=== PATIENT | female | born 1950 | race Caucasian/White ===

== ENCOUNTER 2018-05-13 23:07 | Emergency (ER) | payer MEDICARE, MEDICAID ==
[~2018-05-13] VITALS: Ht 160 cm; Wt 56.7 kg
--- NOTE | 2018-05-13 23:13 | NUR ---
Patient to ER bed 4 to gown for evaluation. Side rails up. Report given to SABINA GARCIA.
--- NOTE | 2018-05-13 23:15 | NUR ---
ER Dr. Navarrete at bedside examining patient.
--- NOTE | 2018-05-13 23:15 | NUR ---
Pt states she needs a refill for her inhaler. Will continue to monitor. No distress noted. AAOX4.
--- NOTE | 2018-05-13 23:21 | NUR ---
Patient given written and verbal discharge instructions and verbalizes understanding. ER MD discussed with patient the results and treatment provided. Patient in stable condition. ID arm band removed. Rx of Proventil given. Patient educated on pain management and to follow up with PMD. Pain Scale 0/10. Opportunity for questions provided and answered. Medication side effect fact sheet provided.
[2018-05-13 23:23] VITALS: BP_SYST 99
== END 2018-05-13 23:21 | disposition home or self-care (01) ==
LOC: SED 23:07
DX: J45.909 Unspecified asthma, uncomplicated (principal); F17.210 Nicotine dependence, cigarettes, uncomplicated; Z76.0 Encounter for issue of repeat prescription; Z86.19 Personal history of other infectious and parasitic diseases
CPT/HCPCS: 99283

== ENCOUNTER 2018-06-27 18:23 | Inpatient (IN) | payer MEDICARE, MEDICAID ==
[~2018-06-27] VITALS: Ht 157.5 cm; Wt 51.3 kg
--- NOTE | 2018-06-27 18:25 | NUR ---
ER at bedside examining patient.
--- NOTE | 2018-06-27 18:26 | NUR ---
Patient to ER bed 03 to gown for evaluation. Side rails up. Report given to SABINA Best
--- NOTE | 2018-06-27 18:30 | NUR ---
Patient is confused, unable to get history. Speech is garbled. Patient was found under a tree with open bottles of alcohol. No s/s of distress noted.
[2018-06-27 19:06] LABS: BASOPHILS % (AUTO) 0.6 % (0.0-2.0); EOSINOPHILS % (AUTO) 0.5 % (0.0-4.0); HEMATOCRIT 34.6 % (36-48); HEMOGLOBIN 12.1 g/dL (12.0-16.0); LYMPHOCYTES % (AUTO) 31.9 % (20.5-51.5); MEAN CORPUSCULAR HEMOGLOBIN 32 pg (27-31); MEAN CORPUSCULAR HGB CONC 35 % (32-36); MEAN CORPUSCULAR VOLUME 93 fL (79.0-98.0); MONOCYTES # (AUTO) 0.2 K/uL (0.0-1.0); MONOCYTES % (AUTO) 3.4 % (1.7-9.3); NEUTROPHILS # (AUTO) 4.2 K/uL (1.8-7.7); NEUTROPHILS % (AUTO) 63.6 % (40.0-70.0); PLATELET COUNT (AUTO) 266 K/uL (130-430); RED BLOOD CELL COUNT(AUTO) 3.73 MIL/uL (4.2-6.2); RED CELL DISTRIBUTION WIDTH 13.9 % (9.0-15.0); WHITE BLOOD COUNT (AUTO) 6.4 K/uL (4.8-10.8)
--- NOTE | 2018-06-27 19:09 | NUR ---
Patient transported to radiology via gurney, accompanied by electro mechanical technician.
[2018-06-27 19:11] LABS: CALCIUM 8.8 mg/dL (8.4-11.0); CREATININE 1.05 mg/dL (0.55-1.30); POTASSIUM 3.2 mmol/L (3.5-5.1); PROTHROMBIN TIME 10.3 SECS (9.5-12.5)
--- NOTE | 2018-06-27 19:14 | NUR ---
Returned from radiology, back to [facility].
[2018-06-27] MEDS ORDERED: NACL 0.9% 1,000 ML IV ONE ×2 (19:15→19:45)
--- NOTE | 2018-06-27 19:18 | NUR ---
Report given to SABINA Grover for continuation of care.
[2018-06-27 19:23] LABS: ALBUMIN 3.8 g/dL (3.4-4.8); TOTAL BILIRUBIN 0.2 mg/dL (0.0-1.0)
[2018-06-27 19:28] LABS: BILIRUBIN,URINE NEGATIVE (NEGATIVE); BLOOD, URINE NEGATIVE (NEGATIVE); CLARITY/URINE CLEAR (CLEAR); COLOR,URINE YELLOW (YELLOW); GLUCOSE,URINE NEGATIVE (NEGATIVE); KETONES,URINE NEGATIVE (NEGATIVE); LEUKOCYTE ESTERASE ,URINE NEGATIVE (NEGATIVE); NITRITE, URINE NEGATIVE (NEGATIVE); PH,URINE 5.5 (5.0-8.0); PROTEIN URINE NEGATIVE (NEGATIVE); UROBILINOGEN,URINE 0.2 (0.2-1.0)
[2018-06-27 19:42] LABS: BARBITURATE, URINE NEGATIVE (NEG <=200); BENZODIAZEPINE, URINE NEGATIVE (NEG <=150); CANNABINOID, URINE POSITIVE (NEG <=50); COCAINE, URINE NEGATIVE (NEG <=150); METHAMPHETAMINES SCREEN,URINE NEGATIVE (NEG <=500); OPIATE, URINE NEGATIVE (NEG <=100); PHENCYCLIDINE SCREEN,URINE NEGATIVE (NEG <=25); UR TRICYCLIC ANTIDEPRESSANTS POSITIVE (NEG <=300); URINE AMPHETAMINE NEGATIVE (NEG <=500); URINE METHADONE NEGATIVE (NEG <=200); URINE OXYCODONE SCREEN NEGATIVE (NEG <=100); URINE PROPOXYPHENE SCREEN NEGATIVE (NEG <=300)
[2018-06-27] MEDS ORDERED: POTASSIUM CHLORIDE 40 MEQ, MAGNESIUM SULFATE 2 GM in 0.45% NS 250 ML IV ONE (19:45)
[2018-06-27] MEDS ORDERED: LORazepam 2 MG/ML VIAL (FOR ER USE) IM ONE (20:15)
--- NOTE | 2018-06-27 20:30 | NUR ---
Patient taken off unit for CT of head via gurney. Accompanied by radiology staff and Blair AHUMADA.
--- NOTE | 2018-06-27 20:41 | NUR ---
Patient returned to unit.
[2018-06-27] MEDS ORDERED: KCL 40mEq in D5/0.45NS 1000 mL 1,000 ML IV ONE ×2 (20:43→21:00)
[2018-06-27] MEDS ORDERED: POTASSIUM CHLORIDE 40 MEQ in NS 250 ML IV ONE (20:45)
[2018-06-27] MEDS ORDERED: LORazepam 2 MG/ML VIAL (FOR ER USE) IVP ONE (21:00)
--- NOTE | 2018-06-27 21:30 | NUR ---
Patient resting quietly. Respirations even and unlabored. No acute distress noted at this time. Will continue to monitor.
--- NOTE | 2018-06-27 21:45 | NUR ---
ED MD Velázquez at bedside reassessing patient.
--- NOTE | 2018-06-27 22:00 | NUR ---
Patient is unable to participate in end of life decisions making at this time. We are unable to contact family or power of senior attorney for healthcare and there are no code status forms on the chart. At this time the patient will be treated as full code on the basis of implied consent.
[2018-06-27 22:10] VITALS: BP_SYST 104
--- NOTE | 2018-06-27 22:10 | NUR ---
ADMISSION NOTE Received patient from ER via jean-pierre, received report from SABINA CERDA. Patient admitted with diagnosis of ALCOHOL INTOXICATION. Patient oriented to hospital routine, call light, toileting and safety-patient verbalized understanding.
--- NOTE | 2018-06-27 22:10 | NUR ---
Patient will be admitted to care of Dr. Plolard. Admitted to Telemetry unit. Will go to room 135. Belongings list completed. Summary report printed. Report will be given at bedside. Transfer to telemetry via ACLS protocol. Licensed nurse present. IV present no signs or symptoms of infiltration.
--- NOTE | 2018-06-27 22:30 | NUR ---
ROUNDS PATIENT IN BED, DROWSY, VITALS STABLE, NO PAIN AND DISCOMFORT NOTED. ASSESSMENT DONE AND DOCUMENTED. SEE FLOWSHEET. ORIENTED TO HER ROOM , PHONE AND CALL LIGHT. PLAN OF CARE DISCUSSED BUT NEEDS REINFORCEMENT TO TEACHINGS. NEEDS ATTENDED TO. SAFETY AND FALL PRECAUTION MEASURES IN PLACED. BED IN LOW AND LOCKED POSITION. BED ALARM ON. CALL LIGHT PLACED WITHIN REACH.
[2018-06-27] MEDS ORDERED: MORPHINE 2 MG/ML INJ. SYRINGE IVP PRN (22:45)
[2018-06-27] MEDS ORDERED: LORazepam 2 MG/ML VIAL IVP PRN ×2 (22:45)
[2018-06-27] MEDS ORDERED: FOLIC ACID 1 MG, THIAMINE HCL 100 MG, MAGNESIUM SULFATE 1 GM, MVI 10 ML in NACL 0.9% 1,... IV SCH (22:45)
[2018-06-27] MEDS ORDERED: ALBUTEROL SULFATE 0.083% 2.5 MG/3 ML VIAL.NEB INH PRN (22:45)
[2018-06-27] MEDS ORDERED: ACETAMINOPHEN 325 MG TABLET PO PRN (22:45)
[2018-06-27] MEDS ORDERED: ONDANSETRON HCL 4 MG/2 ML VIAL IVP PRN (22:45)
[2018-06-27] MEDS ORDERED: cefTRIAXone 1 GM IVPB PREMIX 50 ML IV SCH (23:00)
[2018-06-27] MEDS ORDERED: cefTRIAXone 1 GM VIAL ONE (23:02)
--- NOTE | 2018-06-28 00:10 | NUR ---
PATIENT RESTING: Patient resting quietly. No acute distress noted. Vital signs within normal range.
[2018-06-28] MEDS ORDERED: THIAMINE HCL 100 MG/ML VIAL ONE ×2 (01:52→01:58)
[2018-06-28] MEDS ORDERED: MVI 10 ML VIAL IV ONE (01:53)
--- NOTE | 2018-06-28 02:17 | NUR ---
siomara Pollard for orders spoke with Kathy.
[2018-06-28] MEDS: NACL 0.9% 1,000 ML IV SCH ×2 (03:14→08:53)
--- NOTE | 2018-06-28 04:12 | NUR ---
PATIENT RESTING: Patient resting quietly. No acute distress noted. Vital signs within normal range.
[2018-06-28 06:35] LABS: BASOPHILS % (AUTO) 0.6 % (0.0-2.0); EOSINOPHILS # (AUTO) 0.2 K/uL (0.0-0.4); EOSINOPHILS % (AUTO) 3.8 % (0.0-4.0); HEMATOCRIT 33.5 % (36-48); HEMOGLOBIN 11.8 g/dL (12.0-16.0); LYMPHOCYTES # (AUTO) 2.2 K/uL (1.0-5.5); LYMPHOCYTES % (AUTO) 35.7 % (20.5-51.5); MEAN CORPUSCULAR HEMOGLOBIN 33 pg (27-31); MEAN CORPUSCULAR HGB CONC 35 % (32-36); MEAN CORPUSCULAR VOLUME 95 fL (79.0-98.0); MONOCYTES # (AUTO) 0.3 K/uL (0.0-1.0); MONOCYTES % (AUTO) 5.7 % (1.7-9.3); NEUTROPHILS # (AUTO) 3.4 K/uL (1.8-7.7); NEUTROPHILS % (AUTO) 54.2 % (40.0-70.0); PLATELET COUNT (AUTO) 234 K/uL (130-430); RED BLOOD CELL COUNT(AUTO) 3.54 MIL/uL (4.2-6.2); RED CELL DISTRIBUTION WIDTH 13.8 % (9.0-15.0); WHITE BLOOD COUNT (AUTO) 6.1 K/uL (4.8-10.8)
--- NOTE | 2018-06-28 06:50 | NUR ---
CLOSING NOTES PATIENT ASLEEP, NOT IN DISTRESS, VITALS STABLE. NO SIGNS OF ANY PAIN AND DISCOMFORT NOTED. ALL NEEDS ATTENDED TO. SAFETY MEASURES MAINTAINED. CALL LIGHT PLACED WITHIN REACH.
[2018-06-28 06:55] LABS: CALCIUM 7.7 mg/dL (8.4-11.0); CREATININE 0.69 mg/dL (0.55-1.30); POTASSIUM 3.7 mmol/L (3.5-5.1); TOTAL BILIRUBIN 0.2 mg/dL (0.0-1.0)
[2018-06-28 08:00] VITALS: BP_SYST 131
--- NOTE | 2018-06-28 08:00 | NUR ---
RN OPENING NOTE PATIENT RESTING ON BED, ALERT ORIENTED X 4, PATIENT DENIES PAIN OR DISCOMFORT,. PATIENT WAS ASSESSED, VITAL SIGNS ARE STABLE. PATIENT VOICE CONCERN FOR HER CAT AT HOME. WILL BRING THAT TO THE ATTENTION OF THE CHARGE NURSE ELISABET BURKETT TO SEE WHAT WE CAN DO. SINCE PATIENT NEEDS TO FEED HER CAT. WILL TRY TO CONTACT SOME OF HER FRIENDS BED AT LOW POSITION AND IVF RUNNING PRESCRIBED, CALL LIGHT WITHIN REACH, WILL CONTINUE TO MONITOR.
--- NOTE | 2018-06-28 10:00 | NUR ---
RN NOTE PATIENT RESTING ON BED, ALERT ORIENTED, DENIES PAIN OR DISCOMFORT PATIENT WAS GIVEN HER MEDICATION, PATIENT WAS EDUCATED ABOUT FALL PREVENTION AND ALCOHOL WITHDRAWAL SYMPTOMS.PATIENT WAS EDUCATED ABOUT THE IMPORTANCE OF STOPPING ALCOHOL INTAKE, AND ABOUT ALCOHOL SYNONOMOUS GROUPS. WILL CONTINUE TO MONITOR.
[2018-06-28] MEDS ORDERED: chlordiazePOXIDE HCL 25 MG CAPSULE PO PRN (10:45)
[2018-06-28] MEDS ORDERED: LORazepam 2 MG/ML VIAL IVP PRN (11:15)
--- NOTE | 2018-06-28 12:00 | NUR ---
RN NOTE PATIENT RESTING ON BED. DENIES PAIN OR DISCOMFORT. PATIENT'S BED WAS MADE FOR HER, NO OTHER ISSUE, WILL CONTINUE TO MONITOR
[2018-06-28 12:35] VITALS: BP_SYST 127
--- NOTE | 2018-06-28 14:00 | NUR ---
RN NOTE PATIENT WAS SERVED HER LUNCH, PATIENT'S TRAY WAS SET FOR HER. PATIENT DENIES PAIN OR DISCOMFORT. BED AT LOW POSITION AND CALL LIGHT WITHIN REACH, WILL CONTINUE TO MONITOR.
--- NOTE | 2018-06-28 16:00 | NUR ---
RN NOTES PATIENT RESTING ON BED, PATIENT DENIES PAIN OR DISCOMFORT., PATIENT LINEN WERE CHANGED AFTER THE PATIENT SOILED THE BED. STILL THE BANANA BAG IS RUNNING PRESCRIBED, PATIENT HAS NO SIGNS OF ALCOHOL WITHDRAWAL. WILL CONTINUE TO MONITOR.
[2018-06-28 16:40] VITALS: BP_SYST 154
--- NOTE | 2018-06-28 18:00 | NUR ---
RN CLOSING NOTE PATIENT RESTING ON BED, DENIES PAIN OR DISCOMFORT. PATIENT WILL BE SERVED DINNER, HIWOT THE [employer]I [employer] TICKET CASHIER IS DOING THAT. PATIENT HAS A FRIEND VISITOR. WILL CONTINUE TO MONITOR AND WILL ENDORSE TO NEXT SHIFT, THAT PATIENT WILL BE D/C TOMORROW BEEN TOLD BY THE MReese OBREGON.
--- NOTE | 2018-06-28 19:15 | NUR ---
OPENING NOTES RECEIVED PATIENT IN BED GOWN AND PADS ON THE FLOOR . PER PATIENT SHE HAD AN ACCIDENT AND PEED THE LINENS. LINENS CHANGED. DENIES ANY PAIN AT THIS TIME. BREATHING UNLABORED ON ROOM AIR. IVF INFUSING ORDERED. PLAN OF CARE REVIEWED WITH PATIENT. CALL LIGHT WITHIN REACH. BED ALARM ON.
[2018-06-28 20:00] VITALS: BP_SYST 162
--- NOTE | 2018-06-28 20:50 | NUR ---
PAGED I PAGED DR. MOORE @ [phone] I SPOKE WITH SANTOS BETTE
--- NOTE | 2018-06-28 21:11 | NUR ---
PAGED I PAGED DE. MOORE @ [phone] I SPOKE WITH ANASTACIO BETTE MOORE CALLED BACK @ [phone]
[2018-06-28] MEDS ORDERED: hydrALAZINE HCL 20 MG/ML VIAL IVP PRN (21:30)
--- NOTE | 2018-06-28 21:30 | NUR ---
BP ELEVATED SPOKE WITH DR MOORE MADE AWARE OF PATIENT ELEVATED BP 162/104. NEW ORDER NOTED FOR PRN BP MED AND CARRIED OUT.
[2018-06-28 21:47] VITALS: BP_SYST 156
--- NOTE | 2018-06-28 22:56 | NUR ---
ANXIETY /SLEEP ATIVAN 1 MG IVP GIVEN PER PATIENT REQUEST FOR ANXIETY AND PER PT WOULD LIKE TO GET SOME REST FOR TONIGHT.
--- NOTE | 2018-06-29 00:10 | NUR ---
ROUNDS PATIENT RESTING IN BED. EYES CLOSED. BREATHING UNLABORED. CALL LIGHT WITHIN EASY REACH. BED ALARM ON.
--- NOTE | 2018-06-29 01:54 | NUR ---
ROUNDS PATIENT AWAKE IN BED. PER PT SHE IS WET FROM INCONTINENCE. LINENS CHANGED. KEPT WARM WITH DRY BLANKETS.
[2018-06-29 04:00] VITALS: BP_SYST 133
--- NOTE | 2018-06-29 04:00 | NUR ---
ROUNDS PATIENT RESTING IN BED. BREATHING UNLABORED ON ROOM AIR. VITAL SIGNS STABLE. PLACED CALL LIGHT WITHIN EASY REACH. BED ALARM ON.
[2018-06-29 06:43] LABS: EOSINOPHILS # (AUTO) 0.4 K/uL (0.0-0.4); RED CELL DISTRIBUTION WIDTH 14.1 % (9.0-15.0)
[2018-06-29 06:53] LABS: ALBUMIN 3.3 g/dL (3.4-4.8); CALCIUM 8.9 mg/dL (8.4-11.0); CREATININE 0.73 mg/dL (0.55-1.30); TOTAL BILIRUBIN 0.6 mg/dL (0.0-1.0)
--- NOTE | 2018-06-29 06:53 | NUR ---
CLOSING NOTES PATIENT AWAKE RESTING IN BED. BREATHING CALM/UNLABORED ON ROOM AIR. DENIES PAIN AND ANXIETY THIS TIME. NEEDS ATTENDED DURING SHIFT. CALL LIGHT WITHIN EASY REACH. BED ALARM ON. BED IN LOWEST LOCKED POSITION.
--- NOTE | 2018-06-29 07:45 | NUR ---
AM rounds patient resting in bed, a/ox4, denies pain, assessment complete, abrasions noted on bilateral knees, multiple, multiple scabs, otherwise skin is intact, IV line is patent and infusing well, patient to receive banana bag this morning, educated on plan of care, call light system and to call for any assistance, patient verbalized understanding, bed in lowest position, two side rails up, bed alarm on, fall, aspiration and seizure precautions in place, continuing to monitor.
[2018-06-29 07:51] LABS: BASOPHILS % (AUTO) 0.5 % (0.0-2.0); EOSINOPHILS % (AUTO) 6.9 % (0.0-4.0); HEMOGLOBIN 13.3 g/dL (12.0-16.0); LYMPHOCYTES # (AUTO) 2.1 K/uL (1.0-5.5); LYMPHOCYTES % (AUTO) 35.7 % (20.5-51.5); MEAN CORPUSCULAR HEMOGLOBIN 32 pg (27-31); MEAN CORPUSCULAR HGB CONC 34 % (32-36); MEAN CORPUSCULAR VOLUME 95 fL (79.0-98.0); MONOCYTES # (AUTO) 0.5 K/uL (0.0-1.0); MONOCYTES % (AUTO) 7.7 % (1.7-9.3); NEUTROPHILS % (AUTO) 49.2 % (40.0-70.0); PLATELET COUNT (AUTO) 248 K/uL (130-430); RED BLOOD CELL COUNT(AUTO) 4.09 MIL/uL (4.2-6.2)
[2018-06-29 08:15] VITALS: BP_SYST 152
--- NOTE | 2018-06-29 09:25 | NUR ---
Called pharmacy regarding banana bag orders, spoke with , mediation to be delivered shortly, will follow up as needed.
--- NOTE | 2018-06-29 09:30 | NUR ---
Dr. Buster cardona stated ok to discharge the patient home.
[2018-06-29 09:31] VITALS: BP_SYST 152
--- NOTE | 2018-06-29 10:10 | NUR ---
D/C Patient Patient given medication reconciliation form and D/C instructions. Exit Care provided. Patient verbalized understanding. MD discussed with patient the results and treatment provided. Ambulatory with steady gait for discharge to home, using her personal walker to walk, steady gait. Patient in stable condition, ID band removed. IV catheter removed, intact and dressing applied, no active bleeding. Patient educated on pain management. All belongings sent with patient.
--- NOTE | 2018-06-30 15:11 | NUR ---
Discharge Follow Up Phone Call [facility] phoned patient, . Patient stated she was doing okay. Patient stated she has been sober but had recent stress and began drinking again. Patient wanted to begin attending AA meetings again, but has no transportation, so requested meeting in [place]. [facility] provided patient with the contact number for [facility], , which has daily meetings. Patient has not made a follow up appointment with her PCP, Dr Thea Farmer, as she has lost the phone number. [facility] provided patient with the number, . She will call today for an appointment. Patient had no other questions or concerns.
== END 2018-06-29 10:10 | disposition home or self-care (01) | DRG 57 ==
LOC: EDBD 18:23 → SED 18:23 → MERGE 21:53 → STU 21:53
PROVIDERS: ADMIT Internal Medicine; ATTEND Internal Medicine
DX: G31.2 Degeneration of nervous system due to alcohol (principal); E87.2 Acidosis; F10.231 Alcohol dependence with withdrawal delirium; F10.221 Alcohol dependence with intoxication delirium; E87.6 Hypokalemia; Z60.2 Problems related to living alone; F12.920 Cannabis use, unspecified with intoxication, uncomplicated; Y90.8 Blood alcohol level of 240 mg/100 ml or more; Z71.41 Alcohol abuse counseling and surveillance of alcoholic; Z71.89 Other specified counseling
CPT/HCPCS: 36415; 70450-TC; 70486-TC; 71045; 80053; 80307; 81003; 82140-TC; 83605; 83735-TC; 83880; 84439; 84484; 85025; 85610-TC; 87040-TC; 93005; 96361; 96374; 99285; G0482; J0696; J2060; J3411; J3475; J3480; J3490; J7030; J7050

== ENCOUNTER 2018-09-20 17:59 | Inpatient (IN) | payer MEDICARE, MEDICAID ==
[~2018-09-20] VITALS: Ht 170.2 cm; Wt 68.0 kg
[2018-09-20 18:00] VITALS: BP_SYST 144
[2018-09-20 20:31] LABS: BASOPHILS % (AUTO) 0.7 % (0.0-2.0); EOSINOPHILS # (AUTO) 0.2 K/uL (0.0-0.4); HEMATOCRIT 36.3 % (36-48); HEMOGLOBIN 12.4 g/dL (12.0-16.0); LYMPHOCYTES # (AUTO) 2.2 K/uL (1.0-5.5); LYMPHOCYTES % (AUTO) 44.1 % (20.5-51.5); MEAN CORPUSCULAR HEMOGLOBIN 32 pg (27-31); MEAN CORPUSCULAR HGB CONC 34 % (32-36); MEAN CORPUSCULAR VOLUME 95 fL (79.0-98.0); MONOCYTES # (AUTO) 0.4 K/uL (0.0-1.0); MONOCYTES % (AUTO) 7.3 % (1.7-9.3); NEUTROPHILS # (AUTO) 2.2 K/uL (1.8-7.7); NEUTROPHILS % (AUTO) 44.9 % (40.0-70.0); PLATELET COUNT (AUTO) 249 K/uL (130-430); RED BLOOD CELL COUNT(AUTO) 3.83 MIL/uL (4.2-6.2); RED CELL DISTRIBUTION WIDTH 13.1 % (9.0-15.0)
[2018-09-20 20:42] LABS: CALCIUM 9.3 mg/dL (8.4-11.0); CREATININE 0.82 mg/dL (0.55-1.30); POTASSIUM 3.3 mmol/L (3.5-5.1)
[2018-09-20 20:45] LABS: PROTHROMBIN TIME 10.6 SECS (9.5-12.5)
[2018-09-20 20:47] LABS: ALBUMIN 3.6 g/dL (3.4-4.8); TOTAL BILIRUBIN 0.3 mg/dL (0.0-1.0)
[2018-09-20 21:09] LABS: BILIRUBIN,URINE NEGATIVE (NEGATIVE); BLOOD, URINE TRACE (NEGATIVE); CLARITY/URINE CLEAR (CLEAR); COLOR,URINE YELLOW (YELLOW); GLUCOSE,URINE NEGATIVE (NEGATIVE); KETONES,URINE NEGATIVE (NEGATIVE); LEUKOCYTE ESTERASE ,URINE NEGATIVE (NEGATIVE); NITRITE, URINE NEGATIVE (NEGATIVE); PH,URINE 5.5 (5.0-8.0); PROTEIN URINE NEGATIVE (NEGATIVE); UROBILINOGEN,URINE 0.2 (0.2-1.0)
[2018-09-20 21:15] LABS: BACTERIA,URINE FEW /HPF (None Seen); RBC,URINE 0-3 /HPF (0-3); WBC,URINE 0-3 /HPF (0-3)
[2018-09-20] MEDS ORDERED: HYDR-2489 PO (21:48)
[2018-09-20] MEDS ORDERED: SOM350 PO (21:48)
[2018-09-20] MEDS ORDERED: ESCI10TA PO (21:48)
[2018-09-20] MEDS ORDERED: AMIT10TA6 PO (21:48)
[2018-09-20 22:20] VITALS: BP_SYST 142
[2018-09-20 23:08] VITALS: BP_SYST 149
[2018-09-20] MEDS ORDERED: ALBUTEROL SULFATE 0.083% 2.5 MG/3 ML VIAL.NEB INH PRN (23:30)
[2018-09-21 00:20] VITALS: BP_SYST 149
[2018-09-21 06:00] VITALS: BP_SYST 128
[2018-09-21 07:59] LABS: BASOPHILS % (AUTO) 0.8 % (0.0-2.0); EOSINOPHILS # (AUTO) 0.2 K/uL (0.0-0.4); EOSINOPHILS % (AUTO) 4.3 % (0.0-4.0); HEMATOCRIT 37.8 % (36-48); HEMOGLOBIN 12.8 g/dL (12.0-16.0); LYMPHOCYTES # (AUTO) 1.7 K/uL (1.0-5.5); LYMPHOCYTES % (AUTO) 36.9 % (20.5-51.5); MEAN CORPUSCULAR HEMOGLOBIN 32 pg (27-31); MEAN CORPUSCULAR HGB CONC 34 % (32-36); MEAN CORPUSCULAR VOLUME 94 fL (79.0-98.0); MONOCYTES # (AUTO) 0.4 K/uL (0.0-1.0); MONOCYTES % (AUTO) 7.8 % (1.7-9.3); NEUTROPHILS # (AUTO) 2.3 K/uL (1.8-7.7); NEUTROPHILS % (AUTO) 50.2 % (40.0-70.0); PLATELET COUNT (AUTO) 234 K/uL (130-430); RED BLOOD CELL COUNT(AUTO) 4.04 MIL/uL (4.2-6.2); RED CELL DISTRIBUTION WIDTH 13.3 % (9.0-15.0); WHITE BLOOD COUNT (AUTO) 4.6 K/uL (4.8-10.8)
[2018-09-21 08:05] LABS: ALBUMIN 3.4 g/dL (3.4-4.8); CALCIUM 9.1 mg/dL (8.4-11.0); CREATININE 0.82 mg/dL (0.55-1.30); POTASSIUM 3.1 mmol/L (3.5-5.1); TOTAL BILIRUBIN 0.4 mg/dL (0.0-1.0)
[2018-09-21] MEDS: CARISOPRODOL 350 MG TABLET PO SCH ×3 (09:12→21:22)
[2018-09-21] MEDS: ASPIRIN 81 MG TAB.CHEW PO SCH (09:12)
[2018-09-21 09:15] VITALS: BP_SYST 137
[2018-09-21] MEDS ORDERED: LORazepam 2 MG/ML VIAL IVP PRN (09:30)
[2018-09-21] MEDS ORDERED: LORazepam 2 MG/ML VIAL ONE (09:52)
[2018-09-21] MEDS ORDERED: POTASSIUM CHLORIDE 20 MEQ TAB.PRT.SR PO ONE (10:15)
[2018-09-21] MEDS ORDERED: GADOPENTETATE DIMEGLUMINE 15 ML VIAL IV ONE (10:53)
[2018-09-21 11:31] VITALS: BP_SYST 109
[2018-09-21 15:34] VITALS: BP_SYST 116
[2018-09-21] MEDS: HYDROcodone/ACETAMIN 5-325 MG TAB (NORCO/ VICODIN) PO PRN (18:35)
[2018-09-21 20:19] VITALS: BP_SYST 141
[2018-09-22 01:20] VITALS: BP_SYST 133
[2018-09-22 08:00] VITALS: BP_SYST 138
[2018-09-22] MEDS: ASPIRIN 81 MG TAB.CHEW PO SCH (08:18)
[2018-09-22] MEDS: CARISOPRODOL 350 MG TABLET PO SCH ×3 (08:18→21:13)
[2018-09-22] MEDS: HYDROcodone/ACETAMIN 5-325 MG TAB (NORCO/ VICODIN) PO PRN ×2 (08:19→13:58)
[2018-09-22 12:32] VITALS: BP_SYST 139
[2018-09-22 16:26] VITALS: BP_SYST 153
[2018-09-22 20:00] VITALS: BP_SYST 137
[2018-09-22] MEDS ORDERED: ZOLPIDEM TARTRATE 5 MG TABLET PO ONE (22:00)
[2018-09-22 23:08] VITALS: BP_SYST 146
[2018-09-23 00:01] VITALS: BP_SYST 139
== END 2018-09-23 01:12 | disposition short-term general hospital (02) | DRG 74 ==
LOC: SED 17:59 → STU 22:00
PROVIDERS: ADMIT Internal Medicine; ATTEND Internal Medicine
DX: M79.2 Neuralgia and neuritis, unspecified (principal); J45.909 Unspecified asthma, uncomplicated; B19.20 Unspecified viral hepatitis C without hepatic coma; E87.6 Hypokalemia; Z82.49 Family history of ischemic heart disease and other diseases of the circulatory system; Z82.5 Family history of asthma and other chronic lower respiratory diseases; Z79.899 Other long term (current) drug therapy
CPT/HCPCS: 36415; 70450-TC; 70553; 71045; 72141; 80053; 80061; 81000-TC; 84484; 85025; 85610-TC; 85730-TC; 90656; 93005; 93306; 93880; A9579; J2060

== ENCOUNTER 2018-10-10 10:24 | Inpatient (IN) | payer MEDICARE, MEDICAID ==
[~2018-10-10] VITALS: Ht 160 cm; Wt 54.4 kg
[~2018-10-10 10:24] MED LIST: AMIT10TA6 PO; ESCI10TA PO; HYDR-2489 PO; SOM350 PO
[2018-10-10 10:28] VITALS: BP_SYST 136
[2018-10-10 11:07] LABS: BASOPHILS # (AUTO) 0.1 K/uL (0.0-0.2); BASOPHILS % (AUTO) 1.1 % (0.0-2.0); EOSINOPHILS % (AUTO) 0.2 % (0.0-4.0); HEMATOCRIT 45.3 % (36-48); HEMOGLOBIN 15.1 g/dL (12.0-16.0); LYMPHOCYTES # (AUTO) 1.3 K/uL (1.0-5.5); LYMPHOCYTES % (AUTO) 15.7 % (20.5-51.5); MEAN CORPUSCULAR HEMOGLOBIN 31 pg (27-31); MEAN CORPUSCULAR HGB CONC 33 % (32-36); MEAN CORPUSCULAR VOLUME 93 fL (79.0-98.0); MONOCYTES # (AUTO) 0.1 K/uL (0.0-1.0); MONOCYTES % (AUTO) 1.1 % (1.7-9.3); NEUTROPHILS # (AUTO) 6.6 K/uL (1.8-7.7); NEUTROPHILS % (AUTO) 81.9 % (40.0-70.0); PLATELET COUNT (AUTO) 366 K/uL (130-430); RED BLOOD CELL COUNT(AUTO) 4.88 MIL/uL (4.2-6.2); RED CELL DISTRIBUTION WIDTH 13.4 % (9.0-15.0); WHITE BLOOD COUNT (AUTO) 8.1 K/uL (4.8-10.8)
[2018-10-10 11:22] LABS: ALBUMIN 3.7 g/dL (3.4-4.8); CREATININE 0.88 mg/dL (0.55-1.30); TOTAL BILIRUBIN 0.2 mg/dL (0.0-1.0)
[2018-10-10 11:24] LABS: POTASSIUM 3.4 mmol/L (3.5-5.1)
[2018-10-10] MEDS ORDERED: FOLIC ACID 1 MG, THIAMINE HCL 100 MG, MAGNESIUM SULFATE 1 GM, MVI 10 ML in NACL 0.9% 1,... IV ONE (12:15)
[2018-10-10] MEDS ORDERED: LORazepam 2 MG/ML VIAL IM PRN (13:15)
[2018-10-10] MEDS ORDERED: ONDANSETRON HCL 4 MG/2 ML VIAL IVP PRN (13:15)
[2018-10-10] MEDS ORDERED: ACETAMINOPHEN 325 MG TABLET PO PRN ×2 (13:30→14:30)
[2018-10-10 14:33] VITALS: BP_SYST 130
[2018-10-10] MEDS: NACL 0.9% 1,000 ML IV SCH ×2 (17:39→23:15)
[2018-10-10] MEDS: LORazepam 2 MG/ML VIAL IVP PRN (17:45)
[2018-10-10 20:00] VITALS: BP_SYST 141
[2018-10-10] MEDS ORDERED: AMITRIPTYLINE HCL 25 MG TABLET (ELAVIL) PO SCH (21:00)
[2018-10-10] MEDS: HYDROcodone/ACETAMIN 5-325 MG TAB (NORCO/ VICODIN) PO PRN (22:36)
[2018-10-10] MEDS ORDERED: HYDROcodone/ACETAMIN 5-325 MG TAB (NORCO/ VICODIN) ONE (22:41)
[2018-10-11 00:40] VITALS: BP_SYST 157
[2018-10-11 01:25] VITALS: BP_SYST 148
[2018-10-11] MEDS: LORazepam 2 MG/ML VIAL IVP PRN ×2 (01:39→11:14)
[2018-10-11] MEDS: NACL 0.9% 1,000 ML IV SCH (03:03)
[2018-10-11] MEDS: HYDROcodone/ACETAMIN 5-325 MG TAB (NORCO/ VICODIN) PO PRN (07:28)
[2018-10-11 07:29] VITALS: BP_SYST 152
[2018-10-11] MEDS ORDERED: CITALOPRAM HYDROBROMIDE 20 MG TABLET PO SCH (09:00)
[2018-10-11] MEDS ORDERED: LISINOPRIL 10 MG TABLET (PRINIVIL) PO SCH (09:00)
[2018-10-11] MEDS ORDERED: PANTOPRAZOLE SODIUM 40 MG TAB PO SCH (09:00)
[2018-10-11] MEDS ORDERED: NEPHROVITE, (FOLIC ACID/VITAMIN B COMP W-C 1 TAB) PO SCH (09:00)
[2018-10-11] MEDS ORDERED: THIAMINE HCL 100 MG/ML VIAL IM ONE (09:00)
[2018-10-11] MEDS ORDERED: THIAMINE HCL 100 MG TABLET PO SCH (09:00)
[2018-10-11] MEDS ORDERED: cloNIDine HCL 0.1 MG TABLET PO PRN (09:00)
[2018-10-11] MEDS ORDERED: FOLI-43 PO (09:43)
[2018-10-11] MEDS ORDERED: THIA100T13 PO (09:44)
[2018-10-11] MEDS ORDERED: FAMO-132 PO (09:45)
[2018-10-11 10:38] VITALS: BP_SYST 126
[2018-10-11 12:30] VITALS: BP_SYST 124
== END 2018-10-11 13:30 | disposition home health service (06) | DRG 896 ==
LOC: SED 10:24 → STU 13:15
PROVIDERS: ADMIT Internal Medicine; ATTEND Internal Medicine
DX: F10.129 Alcohol abuse with intoxication, unspecified (principal); G92 Toxic encephalopathy; E86.0 Dehydration; F32.9 Major depressive disorder, single episode, unspecified; G89.29 Other chronic pain; J45.909 Unspecified asthma, uncomplicated; B19.20 Unspecified viral hepatitis C without hepatic coma; I10 Essential (primary) hypertension; F41.9 Anxiety disorder, unspecified; Z79.899 Other long term (current) drug therapy
CPT/HCPCS: 36415; 70450-TC; 71045; 80053; 82150-TC; 83690-TC; 84484; 85025; 85610-TC; 85730-TC; 87081; 96365; 96366; 99285; G0482; J2060; J3411; J3475; J3490; J7030

== ENCOUNTER 2019-02-22 21:26 | Emergency (ER) | payer MEDICARE, MEDICAID ==
[~2019-02-22] VITALS: Ht 160 cm; Wt 54.4 kg
[~2019-02-22 21:26] MED LIST changes: +FAMO-132 PO; +FOLI-43 PO; -HYDR-2489 PO; +HYDR-4274 PO; +THIA100T13 PO
[2019-02-22 21:27] VITALS: BP_SYST 156
--- NOTE | 2019-02-22 21:35 | NUR ---
Patient to ER bed 6 to gown for evaluation. Side rails up. Report given to ROSALES MUHAMMAD..
--- NOTE | 2019-02-22 21:45 | NUR ---
Patient brought to ER via ambulance BLS for complaint of right-sided abdominal pain 07/10 that began tonight. Onset of pain was after taking alcoholic drinks. Patient states she was at a [place] party earlier today when she began to drink. Patient states no other symptoms or complaints.
--- NOTE | 2019-02-22 22:55 | NUR ---
KADY COLBERT Kwaw at bedside for medical evaluation.
[2019-02-22] MEDS: MAG-AL HYDROX/SIMETH 30 ML UDC PO ONE (23:49)
[2019-02-22] MEDS: LIDOCAINE VISCOUS 2%, 15 ML UDC MM ONE (23:50)
[2019-02-23 00:05] LABS: CALCIUM 8.6 mg/dL (8.4-11.0); CREATININE 0.76 mg/dL (0.55-1.30); POTASSIUM 3.3 mmol/L (3.5-5.1)
--- NOTE | 2019-02-23 00:11 | NUR ---
# 20 gauge angiocath placed to LAC. Use of asceptic technique. Opsite placed over site. Blood return noted. Flushed with 10 cc of normal saline. No evidence of infiltration noted. Patient tolerated well.
[2019-02-23] MEDS: NACL 0.9% 1,000 ML IV ONE ×2 (00:15)
[2019-02-23] MEDS: ONDANSETRON HCL 4 MG/2 ML VIAL IVP ONE (00:15)
[2019-02-23 00:17] LABS: ALBUMIN 3.6 g/dL (3.4-4.8); TOTAL BILIRUBIN 0.1 mg/dL (0.0-1.0)
[2019-02-23] MEDS: MORPHINE 4 MG/ML INJ. SYRINGE IVP ONE (00:17)
--- NOTE | 2019-02-23 02:05 | NUR ---
Patient resting comfortably at this time. Rise and fall of chest noted.
--- NOTE | 2019-02-23 04:00 | NUR ---
Patient resting comfortably at this time. No acute distress noted.
--- NOTE | 2019-02-23 06:07 | NUR ---
Patient sleeping comfortably, no acute distress noted. Will continue to monitor.
[2019-02-23 07:00] VITALS: BP_SYST 138
--- NOTE | 2019-02-23 07:00 | NUR ---
Patient given written and verbal discharge instructions and verbalizes understanding. ER MD discussed with patient the results and treatment provided. Patient in stable condition. ID arm band removed. IV catheter removed intact and dressing applied, no active bleeding. No Rx given. Patient educated on pain management and to follow up with PMD. Pain Scale 0/10. Opportunity for questions provided and answered.
== END 2019-02-23 07:00 | disposition home or self-care (01) ==
LOC: SED 21:26
DX: K29.20 Alcoholic gastritis without bleeding (principal); J45.909 Unspecified asthma, uncomplicated; R03.0 Elevated blood-pressure reading, without diagnosis of hypertension; Z86.19 Personal history of other infectious and parasitic diseases; Z79.899 Other long term (current) drug therapy
CPT/HCPCS: 36415; 80053; 83690; 96361; 96374; 96375; 99283; G0482; J2001; J2270; J2405; J7030

== ENCOUNTER 2019-03-24 06:45 | Emergency (ER) | payer MEDICARE, MEDICAID ==
[~2019-03-24] VITALS: Ht 160 cm; Wt 54.4 kg
[2019-03-24 07:08] VITALS: BP_SYST 170
--- NOTE | 2019-03-24 07:08 | NUR ---
PATIENT PLACED IN ROOM #7 AND TRIAGED. PATIENT SITTING UP ON BED. AAOx4. RESPIRATIONS EVEN AND UNLABORED. NO SOB. DENIES OF ANY CHEST PAIN, HEADACHE, DIZZINESS, NUMBNESS, OR TINGLING. PT WITH C/O GENERALIZED ACHING ABDOMINAL PAIN = 10/10 SINCE THIS AM, WITH NAUSEA AND VOMITING. NO FEVERS. NO DIARRHEA. NO OBJECTIVE S/SX OF PAIN OBSERVED. PT RESTING COMFORTABLY ON EXAM BED. REST AND RELAXATION ENCOURAGED. PT IN NO ACUTE DISTRESS. MD MADE AWARE OF PT CHIEF COMPLAINT AND CURRENT VITALS. AWAITING ORDERS. WILL CONTINUE TO MONITOR.
--- NOTE | 2019-03-24 07:57 | NUR ---
DR CATALAN AT BEDSIDE FOR EVALUATION
[2019-03-24] MEDS ORDERED: NACL 0.9% 1,000 ML IV ONE (08:00)
[2019-03-24] MEDS ORDERED: KETOROLAC TROMETHAMINE 30 MG VIAL IVP ONE (08:00)
[2019-03-24] MEDS ORDERED: ONDANSETRON HCL 4 MG/2 ML VIAL IVP ONE (08:00)
--- NOTE | 2019-03-24 08:30 | NUR ---
ZOFRAN AND TORADOL ADMINISTERED PER MD ORDERS. TOELRATED WELL. PLEASE SEE EMAR FOR DETAILS. IVF INFUSION OF NORMAL SALINE STARTED PER MD ORDERS. PLEASE SEE EMAR FOR DETAILS.
[2019-03-24 08:41] LABS: BASOPHILS % (AUTO) 0.2 % (0.0-2.0); HEMATOCRIT 44.8 % (36-48); HEMOGLOBIN 14.9 g/dL (12.0-16.0); LYMPHOCYTES # (AUTO) 0.8 K/uL (1.0-5.5); LYMPHOCYTES % (AUTO) 8.7 % (20.5-51.5); MEAN CORPUSCULAR HEMOGLOBIN 31 pg (27-31); MEAN CORPUSCULAR HGB CONC 33 % (32-36); MEAN CORPUSCULAR VOLUME 94 fL (79.0-98.0); MONOCYTES # (AUTO) 0.3 K/uL (0.0-1.0); MONOCYTES % (AUTO) 3.6 % (1.7-9.3); NEUTROPHILS # (AUTO) 7.6 K/uL (1.8-7.7); NEUTROPHILS % (AUTO) 87.5 % (40.0-70.0); PLATELET COUNT (AUTO) 324 K/uL (130-430); RED BLOOD CELL COUNT(AUTO) 4.74 MIL/uL (4.2-6.2); RED CELL DISTRIBUTION WIDTH 14.3 % (9.0-15.0); WHITE BLOOD COUNT (AUTO) 8.6 K/uL (4.8-10.8)
--- NOTE | 2019-03-24 08:46 | NUR ---
PATIENT VERBALIZED RELIEF FROM NAUSEA. NO EPISODES OF VOMITING. PATIENT WITH C/O SLIGHT PAIN RELIEF. ABDOMINAL PAIN = 8/10. TOLERABLE VERBALIZED. PT WITH NO OBJECTIVE S/SX OF PAIN OBSERVED. IV FLUIDS CONTINUE TO INFUSE AND TOLERATING WELL. PT RESTING COMFORTABLY ON BED. PT IN NO ACUTE DISTRESS. WILL CONTINUE TO MONITOR. MD AWARE OF PT CONDITION. NO NEW ORDERS GIVEN AT THIS TIME.
[2019-03-24 08:55] LABS: CALCIUM 10.2 mg/dL (8.4-11.0); CREATININE 1.28 mg/dL (0.55-1.30)
[2019-03-24 09:00] LABS: ALBUMIN 5.1 g/dL (3.4-4.8); TOTAL BILIRUBIN 0.7 mg/dL (0.0-1.0)
[2019-03-24 09:19] LABS: BILIRUBIN,URINE NEGATIVE (NEGATIVE); BLOOD, URINE 1+ (NEGATIVE); CLARITY/URINE CLEAR (CLEAR); COLOR,URINE YELLOW (YELLOW); GLUCOSE,URINE 1+ (NEGATIVE); KETONES,URINE NEGATIVE (NEGATIVE); LEUKOCYTE ESTERASE ,URINE NEGATIVE (NEGATIVE); NITRITE, URINE NEGATIVE (NEGATIVE); PH,URINE 6.5 (5.0-8.0); PROTEIN URINE TRACE (NEGATIVE); UROBILINOGEN,URINE 0.2 (0.2-1.0)
[2019-03-24 09:35] LABS: BACTERIA,URINE FEW /HPF (None Seen); MUCUS,URINE None Seen /LPF (None Seen); RBC,URINE 0-3 /HPF (0-3); WBC,URINE 0-3 /HPF (0-3)
--- NOTE | 2019-03-24 09:45 | NUR ---
RPatient resting quietly. No acute distress noted.
[2019-03-24] MEDS ORDERED: MORPHINE 4 MG/ML INJ. SYRINGE IVP ONE (10:15)
[2019-03-24] MEDS ORDERED: POTASSIUM CHLORIDE 20 MEQ/PKT PACKET PO ONE (10:15)
--- NOTE | 2019-03-24 10:27 | NUR ---
MORPHINE ADMINISTERED FOR ABDOMINAL PAIN. TOLERATED WELL. PLEASE SEE EMAR FOR DETAILS. KLOR-CON ADMINISTERED PER MD ORDERS FOR POTASSIUM = 3.0. TOLERATED WELL. PLEASE SEE EMAR FOR DETAILS.
--- NOTE | 2019-03-24 11:00 | NUR ---
PATIENT RESTING COMFORTABLY ON BED AND WATCHING TV. PT VERBALIZED SLIGHT RELIEF FROM ABDOMINAL PAIN. PAIN = 8/10; TOLERABLE VERBALIZED. MD MADE AWARE OF PT CONDITION AND CURRENT VITALS. NO NEW ORDERS GIVEN. WILL CONTINUE TO MONITOR.
--- NOTE | 2019-03-24 12:00 | NUR ---
Patient resting quietly. No acute distress noted. Vital signs within normal range.
[2019-03-24 13:30] VITALS: BP_SYST 144
--- NOTE | 2019-03-24 13:30 | NUR ---
Patient given written and verbal discharge instructions and verbalizes understanding. ER MD discussed with patient the results and treatment provided. Patient in stable condition. ID arm band removed. IV catheter removed intact and dressing applied, no active bleeding. Rx of TRAMADOL AND COLACE given. Patient educated on pain management and to follow up with PMD. Pain Scale 0/10. Opportunity for questions provided and answered. Medication side effect fact sheet provided. PATIENT VERBALIZED RELIEF FROM ABDOMINAL PAIN. PATIENT IN NO ACUTE DISTRESS AND IN GOOD CONDITION. PT NOTED WITH A STEADY GAIT. PATIENT DISCHARGED HOME. TRANSPORTED HOME VIA [facility] PER PT REQUEST.
== END 2019-03-24 13:30 | disposition home or self-care (01) ==
LOC: SED 06:45
DX: K59.00 Constipation, unspecified (principal); J45.909 Unspecified asthma, uncomplicated; R03.0 Elevated blood-pressure reading, without diagnosis of hypertension; Z86.19 Personal history of other infectious and parasitic diseases; Z79.899 Other long term (current) drug therapy
CPT/HCPCS: 36415; 74176; 81000; 80053; 83690; 85025; 96361; 96374; 96375; 99284; J1885; J2270; J2405; J7030

== ENCOUNTER 2019-04-03 12:29 | Inpatient (IN) | payer MEDICARE, MEDICAID ==
[~2019-04-03] VITALS: Ht 160 cm; Wt 56.7 kg
--- NOTE | 2019-04-03 12:29 | NUR ---
BROUGHT IN BY S AMBULANCE, PLACED IN BED #8 AND TRIAGED. REPORT GIVEN TO FAN
[2019-04-03 12:30] VITALS: BP_SYST 116
[2019-04-03] MEDS ORDERED: NACL 0.9% 1,000 ML IV ONE (12:35)
--- NOTE | 2019-04-03 12:41 | NUR ---
Patient is awake, alert, and oriented x1. Patient was brought in by ambulance, confused, has wound in left forearm. Patient is unable to verbalize what happened to her arm.
[2019-04-03] MEDS ORDERED: ONDANSETRON HCL 4 MG/2 ML VIAL IVP ONE (12:45)
[2019-04-03] MEDS ORDERED: DIPH-TET-PERTUS Vaccine 0.5 ML VIAL (ADACEL) IM ONE (12:45)
[2019-04-03] MEDS ORDERED: LIDOCAINE 1% 10 MG/ML, 20 ML MDV IJ ONE (12:45)
[2019-04-03] MEDS ORDERED: MORPHINE 4 MG/ML INJ. SYRINGE IVP ONE (12:45)
[2019-04-03] MEDS ORDERED: BACITRACIN 1 GM OINT TP ONE (12:45)
--- NOTE | 2019-04-03 13:16 | NUR ---
Dr. Guajardo at bedside to perform procedure.
[2019-04-03] MEDS ORDERED: FOLIC ACID 1 MG, THIAMINE HCL 100 MG, MAGNESIUM SULFATE 1 GM, MVI 10 ML in NACL 0.9% 1,... IV ONE (13:30)
[2019-04-03 13:37] LABS: BASOPHILS % (AUTO) 0.2 % (0.0-2.0); EOSINOPHILS # (AUTO) 0.1 K/uL (0.0-0.4); EOSINOPHILS % (AUTO) 0.7 % (0.0-4.0); HEMATOCRIT 38.9 % (36-48); LYMPHOCYTES # (AUTO) 2.4 K/uL (1.0-5.5); LYMPHOCYTES % (AUTO) 19.1 % (20.5-51.5); MEAN CORPUSCULAR HEMOGLOBIN 32 pg (27-31); MEAN CORPUSCULAR HGB CONC 34 % (32-36); MEAN CORPUSCULAR VOLUME 95 fL (79.0-98.0); MONOCYTES # (AUTO) 0.6 K/uL (0.0-1.0); MONOCYTES % (AUTO) 4.9 % (1.7-9.3); NEUTROPHILS # (AUTO) 9.4 K/uL (1.8-7.7); NEUTROPHILS % (AUTO) 75.1 % (40.0-70.0); PLATELET COUNT (AUTO) 273 K/uL (130-430); RED CELL DISTRIBUTION WIDTH 14.5 % (9.0-15.0); WHITE BLOOD COUNT (AUTO) 12.5 K/uL (4.8-10.8)
--- NOTE | 2019-04-03 13:40 | NUR ---
Spoke with Samantha from pharmacy regarding banana bag, she stated she would tell the pharmacist.
[2019-04-03 13:42] LABS: CALCIUM 8.8 mg/dL (8.4-11.0); CREATININE 0.86 mg/dL (0.55-1.30)
[2019-04-03 13:49] LABS: ALBUMIN 3.7 g/dL (3.4-4.8); PROTHROMBIN TIME 10.4 SECS (9.5-12.5); TOTAL BILIRUBIN 0.1 mg/dL (0.0-1.0)
--- NOTE | 2019-04-03 14:00 | NUR ---
Report given to Citlali for continuation of care.
[2019-04-03 14:34] LABS: CKMB RELATIVE INDEX 2.1 (0.0-2.9); CREATINE KINASE MB 5.4 ng/mL (0-3.6)
[2019-04-03 14:56] LABS: BILIRUBIN,URINE NEGATIVE (NEGATIVE); CLARITY/URINE CLEAR (CLEAR); COLOR,URINE YELLOW (YELLOW); GLUCOSE,URINE NEGATIVE (NEGATIVE); KETONES,URINE NEGATIVE (NEGATIVE); LEUKOCYTE ESTERASE ,URINE 1+ (NEGATIVE); NITRITE, URINE NEGATIVE (NEGATIVE); PROTEIN URINE NEGATIVE (NEGATIVE); UROBILINOGEN,URINE 0.2 (0.2-1.0)
[2019-04-03 14:58] LABS: BLOOD, URINE TRACE (NEGATIVE)
[2019-04-03 15:06] LABS: BARBITURATE, URINE NEGATIVE (NEG <=200); BENZODIAZEPINE, URINE NEGATIVE (NEG <=150); CANNABINOID, URINE POSITIVE (NEG <=50); COCAINE, URINE NEGATIVE (NEG <=150); METHAMPHETAMINES SCREEN,URINE NEGATIVE (NEG <=500); OPIATE, URINE POSITIVE (NEG <=100); PHENCYCLIDINE SCREEN,URINE NEGATIVE (NEG <=25); UR TRICYCLIC ANTIDEPRESSANTS POSITIVE (NEG <=300); URINE AMPHETAMINE NEGATIVE (NEG <=500); URINE METHADONE NEGATIVE (NEG <=200); URINE OXYCODONE SCREEN NEGATIVE (NEG <=100); URINE PROPOXYPHENE SCREEN NEGATIVE (NEG <=300)
--- NOTE | 2019-04-03 15:11 | NUR ---
PT CONFUSED THINKING SHE IS GOING TO [facility], PT IS UNAWARE OF HOW SHE GOT TO ER. EXPLAINED TO PT THAT SHE WAS PICKED UP BY AN AMBULANCE AND BROUGHT TO ER.
[2019-04-03 15:13] LABS: BACTERIA,URINE FEW /HPF (None Seen); MUCUS,URINE 1+ /LPF (None Seen); RBC,URINE 0-3 /HPF (0-3)
--- NOTE | 2019-04-03 15:30 | NUR ---
Pt requesting icechips at this time, icechips given to patient, well tolerated
[2019-04-03] MEDS ORDERED: AMPICILLIN SODIUM/SULBACTAM NA 1.5 GM in NS 50 ML IV ONE (16:00)
[2019-04-03] MEDS ORDERED: NACL 0.9% 2,000 ML IV ONE (16:00)
--- NOTE | 2019-04-03 16:15 | NUR ---
Pt throwing cup on the floor and yelling, requesting icechips. icechips provided to patient.
[2019-04-03] MEDS ORDERED: AMPICILLIN SODIUM/SULBACTAM NA 1.5 GM VIAL ONE (17:13)
--- NOTE | 2019-04-03 18:30 | NUR ---
Pt requesting bedpan , bedpan provided, pt on stable condition
--- NOTE | 2019-04-03 21:20 | NUR ---
Pt A&Ox4,pt requesting bedpan and water, well tolerated
--- NOTE | 2019-04-03 21:25 | NUR ---
Medication reconciliation completed with information provided by patient. Any prior medication reconciliation on file was reviewed and corrected.
--- NOTE | 2019-04-03 21:25 | NUR ---
Pt denies pain at this time, VSS
--- NOTE | 2019-04-03 22:00 | NUR ---
Patient will be admitted to care of Dr Mcmanus. Admitted to Tele unit. Will go to room 105A. Belongings list completed. Summary report printed. Report will be given at bedside.
--- NOTE | 2019-04-03 22:01 | NUR ---
ADMISSION NOTE Received patient from ER via gurney. Patient admitted with diagnosis of R/O RI, Complex Forearm Laceration. Patient is awake, alert, oriented X 4. Patient oriented to hospital room, call light, toileting, pain management and safety-teach back done. Patient informed that SABINA Faria will be primary nurse and that their room number is 105A. Personal belongings checked and Belongings List documented. Call light within reach.
[2019-04-03 22:20] VITALS: BP_SYST 153
[2019-04-04] MEDS ORDERED: MORPHINE 4 MG/ML INJ. SYRINGE IVP PRN ×2
[2019-04-04] MEDS ORDERED: ALBUTEROL SULFATE 0.083% 2.5 MG/3 ML VIAL.NEB INH PRN
[2019-04-04] MEDS ORDERED: LORazepam 2 MG/ML VIAL IVP PRN
--- NOTE | 2019-04-04 | NUR ---
PHOTO PICTURE TAKEN OF LEFT ARM LACERATION NINE SUTURES , INPLACE NO BLEEDING noted WELL APPROXIMATED .
[2019-04-04] MEDS ORDERED: NACL 0.9% 1,000 ML IV ONE (00:15)
[2019-04-04] MEDS ORDERED: VANCOMYCIN HCL 1 GM/NS PREMIX 250 ML IV ONE (00:15)
[2019-04-04 00:30] VITALS: BP_SYST 153
[2019-04-04] MEDS ORDERED: cefTRIAXone 1 GM IVPB PREMIX 50 ML IV ONE (01:17)
[2019-04-04] MEDS ORDERED: VANCOMYCIN HCL 1000 MG/VIAL IV ONE (01:17)
[2019-04-04] MEDS: cefTRIAXone 1 GM IVPB PREMIX 50 ML IV SCH ×2 (01:45→23:13)
--- NOTE | 2019-04-04 02:50 | NUR ---
VANCOMYCIN 1 GM IVPB administer as ordered no allergic reaction noted .
--- NOTE | 2019-04-04 02:52 | NUR ---
ROCEPHIN 1 GM IVPB administer as ordered no allergic reaction .
[2019-04-04 06:54] LABS: BASOPHILS % (AUTO) 0.4 % (0.0-2.0); EOSINOPHILS # (AUTO) 0.1 K/uL (0.0-0.4); EOSINOPHILS % (AUTO) 0.7 % (0.0-4.0); HEMATOCRIT 36.1 % (36-48); LYMPHOCYTES # (AUTO) 1.8 K/uL (1.0-5.5); LYMPHOCYTES % (AUTO) 15.1 % (20.5-51.5); MEAN CORPUSCULAR HEMOGLOBIN 31 pg (27-31); MEAN CORPUSCULAR HGB CONC 33 % (32-36); MEAN CORPUSCULAR VOLUME 95 fL (79.0-98.0); MONOCYTES # (AUTO) 0.7 K/uL (0.0-1.0); MONOCYTES % (AUTO) 5.6 % (1.7-9.3); NEUTROPHILS # (AUTO) 9.4 K/uL (1.8-7.7); NEUTROPHILS % (AUTO) 78.2 % (40.0-70.0); PLATELET COUNT (AUTO) 239 K/uL (130-430); RED BLOOD CELL COUNT(AUTO) 3.82 MIL/uL (4.2-6.2); RED CELL DISTRIBUTION WIDTH 14.5 % (9.0-15.0)
[2019-04-04 07:42] LABS: ALBUMIN 3.2 g/dL (3.4-4.8); CALCIUM 8.4 mg/dL (8.4-11.0); CREATININE 0.66 mg/dL (0.55-1.30); TOTAL BILIRUBIN 0.6 mg/dL (0.0-1.0)
[2019-04-04 08:00] VITALS: BP_SYST 170
--- NOTE | 2019-04-04 08:00 | NUR ---
RN NOTE PATIENT IS RESTING IN BED, ALERT ORIENTED X3, PATIENT DENIES PAIN OR DISCOMFORT. PATIENT VITAL SIGNS WERE MEASURED.BLOOD PRESSURE IS HIGH, WILL REPORT TO THE COVERING DR. PATIENT WAS ASSESSED, BED ALARM IS ON, BED AT LOW POSITION AND CALL LIGHT WITHIN REACH, WILL CONTINUE TO MONITOR.
[2019-04-04] MEDS ORDERED: ONDANSETRON HCL 4 MG/2 ML VIAL IVP PRN (08:45)
[2019-04-04] MEDS: CARISOPRODOL 350 MG TABLET PO SCH ×3 (08:51→21:47)
[2019-04-04] MEDS: METOCLOPRAMIDE HCL 10 MG/2 ML VIAL IVP SCH ×3 (08:51→23:14)
[2019-04-04] MEDS: chlordiazePOXIDE HCL 25 MG CAPSULE PO SCH ×3 (08:51→21:47)
[2019-04-04] MEDS ORDERED: cloNIDine HCL 0.1 MG TABLET PO PRN (10:00)
--- NOTE | 2019-04-04 10:00 | NUR ---
RN NOTE PATIENT WAS GIVEN HER MEDICATION, THE DOCTOR TALKED WITH THE PATIENT, WILL CONTINUE TO MONITOR.
--- NOTE | 2019-04-04 10:18 | NUR ---
Shahzad hwang; faxed H&PMD progress notes to Galina castro at fax#[phone]--CARMEN MUHAMMAD
[2019-04-04] MEDS ORDERED: NIFEDIPINE 30 MG TAB.ER.24 PO ONE (10:30)
[2019-04-04 11:39] VITALS: BP_SYST 158
--- NOTE | 2019-04-04 12:00 | NUR ---
Case mgt: Went to do dcpa-pt was having echo at bedside--
--- NOTE | 2019-04-04 12:00 | NUR ---
RN NOTE PATIENT IS RESTING IN BED, TALKED TO DR. TABOR ABOUT THE PATIENT VOMITING, PATIENT WAS PRESCRIBED REGLAN, PATIENT WAS GIVEN HER MEDICATION. UP TILL NOW THER IS NO VOMITING, PATIENT WAS SERVED HER LUNCH. WILL CONTINUE TO MONITOR.
--- NOTE | 2019-04-04 14:00 | NUR ---
RN NOTE PATIENT IS RESTING IN BED, DENIES PAIN OR DISCOMFORT. PATIENT HAS NO VOMITING, WILL CONTINUE TO MONITOR.
[2019-04-04] MEDS ORDERED: FOLIC ACID 1 MG, THIAMINE HCL 100 MG, MAGNESIUM SULFATE 1 GM, MVI 10 ML in NACL 0.9% 1,... IV SCH (15:00)
[2019-04-04 15:24] VITALS: BP_SYST 146
--- NOTE | 2019-04-04 16:00 | NUR ---
RN NOTE. \ PATIENT BANAN BAG WAS HUNG FOR HER, PATIENT HAS HER NEIGHBORS BY BEDSIDE, EDUCATED ABOUT THE DISEASE PROCESS AND FALL PREVENTION, WILL CONTINUE TO MONITOR.
--- NOTE | 2019-04-04 18:00 | NUR ---
RN CLOSING NOTE PATIENT IS RESTING ON BED, DENIES PAIN OR DISCOMFORT, PATIENT HAS NO VOMITING SINCE THE MORNING, PATIENT WAS SERVED HER DINNER AND GIVEN HER REGLAN IVP MEDICINE, WILL CONTINUE TO MONITOR AND WILL ENDORSE TO NEXT SHIFT.
[2019-04-04 20:00] VITALS: BP_SYST 147
--- NOTE | 2019-04-04 21:15 | NUR ---
LEFT ARM LACERATION NON ADHESIVE DSD , inplace IRIS WRAP applied no bleeding noted SUTURES intact .
--- NOTE | 2019-04-04 22:52 | NUR ---
SOMA 350 MG PO given for left arm LACERATION pain & helpful .
--- NOTE | 2019-04-04 22:57 | NUR ---
LIBRIUM 25 MG PO administer as ordered for ETOH with drawl , FALL measures implemented .
[2019-04-05 00:31] VITALS: BP_SYST 128
[2019-04-05] MEDS ORDERED: VANCOMYCIN HCL 1,000 MG in NS 250 ML IV SCH (02:00)
--- NOTE | 2019-04-05 02:00 | NUR ---
Hourly Rounding patient resting is verbally responsive , HOB kept elevated FALL measures implemented & effective .
--- NOTE | 2019-04-05 04:12 | NUR ---
FALL PRECAUTIONS patient awake assist out of bed to rest room , ambulates with assist no SOB back to bed tolerated .
[2019-04-05] MEDS: METOCLOPRAMIDE HCL 10 MG/2 ML VIAL IVP SCH ×2 (06:45→11:38)
--- NOTE | 2019-04-05 07:30 | NUR ---
INITIAL NOTE RECEIVED PT IN BED, NO S/S OF DISTRESS OR SOB NOTED, PT HAS NO C/O PAIN AT THIS TIME, PT IN STABLE CONDITION, PT AAOX4, VERBAL. IV CATHETER PATENT, NO SIGNS OF INFECTION OR INFILTRATION NOTED. PT REFUSED TO HAVE BILATERAL SCD'S IN PLACE, EDUCATED PT ON IMPORTANCE OF USE TO PREVENT DVT, PT VERBALIZED UNDERSTANDING BUT CONTINUES TO REFUSE. BED AT LOWEST POSITION, CALL LIGHT WITHIN REACH, WILL CONTINUE TO MONITOR PT FOR ANY CHANGES, FALL AND SAFETY PRECAUTIONS IN PLACE.
[2019-04-05 07:43] LABS: BASOPHILS % (AUTO) 0.5 % (0.0-2.0); EOSINOPHILS # (AUTO) 0.2 K/uL (0.0-0.4); EOSINOPHILS % (AUTO) 2.4 % (0.0-4.0); HEMATOCRIT 39.2 % (36-48); HEMOGLOBIN 13.2 g/dL (12.0-16.0); LYMPHOCYTES # (AUTO) 1.8 K/uL (1.0-5.5); LYMPHOCYTES % (AUTO) 25.1 % (20.5-51.5); MEAN CORPUSCULAR HEMOGLOBIN 32 pg (27-31); MEAN CORPUSCULAR HGB CONC 34 % (32-36); MEAN CORPUSCULAR VOLUME 95 fL (79.0-98.0); MONOCYTES # (AUTO) 0.5 K/uL (0.0-1.0); MONOCYTES % (AUTO) 6.6 % (1.7-9.3); NEUTROPHILS # (AUTO) 4.7 K/uL (1.8-7.7); NEUTROPHILS % (AUTO) 65.4 % (40.0-70.0); PLATELET COUNT (AUTO) 235 K/uL (130-430); RED BLOOD CELL COUNT(AUTO) 4.14 MIL/uL (4.2-6.2); RED CELL DISTRIBUTION WIDTH 15.1 % (9.0-15.0); WHITE BLOOD COUNT (AUTO) 7.2 K/uL (4.8-10.8)
[2019-04-05 07:50] LABS: CALCIUM 8.5 mg/dL (8.4-11.0); CREATININE 0.78 mg/dL (0.55-1.30); POTASSIUM 3.5 mmol/L (3.5-5.1)
[2019-04-05 08:01] LABS: TOTAL BILIRUBIN 0.4 mg/dL (0.0-1.0)
[2019-04-05 08:30] VITALS: BP_SYST 113
[2019-04-05] MEDS: chlordiazePOXIDE HCL 25 MG CAPSULE PO SCH (08:43)
[2019-04-05] MEDS: CARISOPRODOL 350 MG TABLET PO SCH (08:43)
[2019-04-05] MEDS ORDERED: NIFEDIPINE 30 MG TAB.ER.24 PO SCH (09:00)
--- NOTE | 2019-04-05 09:13 | NUR ---
MD ROUNDS DR DAYANARA BARCENAS, AWARE OF PATIENT'S CONDITION. NEW ORDERS GIVEN.
--- NOTE | 2019-04-05 10:20 | NUR ---
ROUNDS PT IN BED, NO S/S OF DISTRESS OR SOB NOTED, PT HAS NO C/O PAIN AT THIS TIME, PT IN STABLE CONDITION, PT WATCHING TV, WILL CONTINUE TO MONITOR PT FOR ANY CHANGES.
[2019-04-05 11:34] VITALS: BP_SYST 110
--- NOTE | 2019-04-05 11:45 | NUR ---
REFUSE COLLECTOR REFUSE COLLECTOR CAME AND SPOKE WITH PT.
--- NOTE | 2019-04-05 11:49 | NUR ---
Social Service Note: Pt, referred by physician due to pt. alcohol use. RESERVATION CLERK met with Pt. at bedside. Pt. appeared alert and orientated. Pt. was cooperative. Pt. is home alone and uses a walker. She stated drank a fifth of Vodka prior to passing out. She stated she is not a regular drinker. Per Pt. medical record, Pt. has been admitted multiple times due to alcohol use. Pt. appears ambivalent to the severity of her drinking. Pt. reports she will begin attending AA mtgs. RESERVATION CLERK offered AA listing. Pt. admitted to knowing of locations of the local AA mgts. Pt. states she is able to drive and plans to return home. Substance abuse resources and stitch separator resources were given to pt. RESERVATION CLERK will follow up as needed.
[2019-04-05 12:04] VITALS: BP_SYST 110
--- NOTE | 2019-04-05 12:15 | NUR ---
D/C Patient Patient given medication reconciliation form and D/C instructions. Exit Care provided. Patient verbalized understanding. MD discussed with patient the results and treatment provided. Ambulatory with assist for discharge to home. Patient in stable condition, ID band removed. IV catheter removed, intact and dressing applied, no active bleeding. Patient educated on pain management. All belongings sent with patient. Pt has a dressing on left arm, clean and dry with sutures.
--- NOTE | 2019-04-08 15:32 | NUR ---
Discharge Follow Up Phone Call OPERATER phoned the number listed for patient, , and left a voicemail message (no patient identifier) but the name was wrong. OPERATER phoned the number listed from a previous admission, , and spoke with patient. Patient stated she was doing fine. She has a follow up appointment scheduled with her PCP and stitch removal on 04/12/19. Patient stated she thought her wound was more red and painful than yesterday but still not bad. OPERATER recommended patient phone her PCP with this update to determine if they want to see her earlier. Patient stated she plans to follow up on the substance abuse resources, possibly [facility]. Discussed. OPERATER offered encouragement. No other questions or concerns.
== END 2019-04-05 12:15 | disposition home or self-care (01) | DRG 605 ==
LOC: SED 12:29 → STU 21:39 → SMU 04-05 10:14
PROVIDERS: ADMIT Internal Medicine; ATTEND Internal Medicine
PROC: 0HQEXZZ Repair Left Lower Arm Skin, External Approach (ICD-10-PCS; principal; 2019-04-03)
DX: S51.812A Laceration without foreign body of left forearm, initial encounter (principal); N39.0 Urinary tract infection, site not specified; F10.129 Alcohol abuse with intoxication, unspecified; B19.20 Unspecified viral hepatitis C without hepatic coma; J45.909 Unspecified asthma, uncomplicated; Y90.9 Presence of alcohol in blood, level not specified; F11.10 Opioid abuse, uncomplicated; G89.29 Other chronic pain; W18.30XA Fall on same level, unspecified, initial encounter; Y93.89 Activity, other specified; Y92.89 Other specified places as the place of occurrence of the external cause; Y99.8 Other external cause status; Z79.899 Other long term (current) drug therapy
CPT/HCPCS: 36415; 71045; 80053; 80307; 81000-TC; 82550-TC; 82553-TC; 83605; 83690-TC; 83735-TC; 84484; 85025; 85610-TC; 85730-TC; 87040-TC; 87086; 90715; 93306; 94760; 96361; 96365; 96366; 96368; 96375; 99285; G0378; G0481; G0482; J0295; J0696; J2001; J2270; J2405; J2765; J3370; J3411; J3475; J3490; J7030; J7040; J7050

== ENCOUNTER 2019-06-15 19:07 | Inpatient (IN) | payer MEDICARE, MEDICAID ==
[~2019-06-15] VITALS: Ht 160 cm; Wt 53.1 kg
[~2019-06-15 19:07] MED LIST changes: -AMIT10TA6 PO; -FAMO-132 PO; -FOLI-43 PO; -HYDR-4274 PO; -THIA100T13 PO
[2019-06-15 19:15] VITALS: BP_SYST 145
[2019-06-15] MEDS ORDERED: NACL 0.9% 1,000 ML IV ONE (19:46)
[2019-06-15] MEDS ORDERED: NITROGLYCERIN 0.4 MG TAB.SUBL SL ONE (20:00)
[2019-06-15] MEDS ORDERED: ASPIRIN 81 MG TAB.CHEW PO ONE (20:00)
[2019-06-15] MEDS ORDERED: CLOPIDOGREL BISULFATE 75 MG TABLET PO ONE (20:00)
[2019-06-15 20:03] LABS: BASOPHILS % (AUTO) 0.4 % (0.0-2.0); HEMATOCRIT 40.8 % (36-48); HEMOGLOBIN 13.8 g/dL (12.0-16.0); LYMPHOCYTES # (AUTO) 1.4 K/uL (1.0-5.5); LYMPHOCYTES % (AUTO) 13.7 % (20.5-51.5); MEAN CORPUSCULAR HEMOGLOBIN 32 pg (27-31); MEAN CORPUSCULAR HGB CONC 34 % (32-36); MEAN CORPUSCULAR VOLUME 94 fL (79.0-98.0); MONOCYTES # (AUTO) 0.6 K/uL (0.0-1.0); MONOCYTES % (AUTO) 5.6 % (1.7-9.3); NEUTROPHILS % (AUTO) 80.3 % (40.0-70.0); PLATELET COUNT (AUTO) 267 K/uL (130-430); RED BLOOD CELL COUNT(AUTO) 4.35 MIL/uL (4.2-6.2); RED CELL DISTRIBUTION WIDTH 14.8 % (9.0-15.0)
[2019-06-15 20:18] LABS: CREATININE 0.91 mg/dL (0.55-1.30); POTASSIUM 3.1 mmol/L (3.5-5.1)
[2019-06-15 20:22] LABS: ALBUMIN 3.9 g/dL (3.4-4.8); TOTAL BILIRUBIN 0.4 mg/dL (0.0-1.0)
[2019-06-15 20:54] LABS: BILIRUBIN,URINE NEGATIVE (NEGATIVE); BLOOD, URINE 1+ (NEGATIVE); CLARITY/URINE HAZY (CLEAR); COLOR,URINE YELLOW (YELLOW); GLUCOSE,URINE NEGATIVE (NEGATIVE); KETONES,URINE 1+ (NEGATIVE); LEUKOCYTE ESTERASE ,URINE NEGATIVE (NEGATIVE); NITRITE, URINE NEGATIVE (NEGATIVE); PROTEIN URINE 1+ (NEGATIVE); UROBILINOGEN,URINE 0.2 (0.2-1.0)
[2019-06-15] MEDS ORDERED: ESCI10TA PO (21:04)
[2019-06-15] MEDS ORDERED: AMIT10TA6 PO (21:04)
[2019-06-15] MEDS ORDERED: HYDR-4274 PO (21:04)
[2019-06-15 21:08] LABS: PROTHROMBIN TIME 10.1 SECS (9.5-12.5)
[2019-06-15 21:15] LABS: BARBITURATE, URINE NEGATIVE (NEG <=200); BENZODIAZEPINE, URINE NEGATIVE (NEG <=150); CANNABINOID, URINE POSITIVE (NEG <=50); COCAINE, URINE NEGATIVE (NEG <=150); METHAMPHETAMINES SCREEN,URINE NEGATIVE (NEG <=500); OPIATE, URINE NEGATIVE (NEG <=100); PHENCYCLIDINE SCREEN,URINE NEGATIVE (NEG <=25); UR TRICYCLIC ANTIDEPRESSANTS POSITIVE (NEG <=300); URINE AMPHETAMINE NEGATIVE (NEG <=500); URINE METHADONE NEGATIVE (NEG <=200); URINE OXYCODONE SCREEN NEGATIVE (NEG <=100); URINE PROPOXYPHENE SCREEN NEGATIVE (NEG <=300)
[2019-06-15] MEDS ORDERED: MAG HYDROX/AL HYDROX/SIMETH 30 ML, DICYCLOMINE HCL 20 MG, LIDOCAINE VISCOUS 2% 15ML (PO... PO ONE ×3 (21:15)
[2019-06-15 21:21] LABS: CKMB RELATIVE INDEX 1.3 (0.0-2.9); CREATINE KINASE MB 2.7 ng/mL (0-3.6)
[2019-06-15 22:05] LABS: BACTERIA,URINE FEW /HPF (None Seen); MUCUS,URINE None Seen /LPF (None Seen); URINE AMORPHOUS PHOSPHATES 3+ /HPF (None Seen); WBC,URINE 0-3 /HPF (0-3)
[2019-06-15] MEDS ORDERED: MORPHINE 4 MG/ML INJ. SYRINGE IVP ONE (23:00)
[2019-06-16] VITALS (10 sets, daily range): BP systolic 128–183
[2019-06-16] MEDS ORDERED: cloNIDine HCL 0.1 MG TABLET ONE (01:09)
[2019-06-16] MEDS ORDERED: POTASSIUM CHLORIDE 20 MEQ TAB.PRT.SR ONE (01:11)
[2019-06-16] MEDS: cloNIDine HCL 0.1 MG TABLET PO SCH ×3 (01:30→15:20)
[2019-06-16] MEDS ORDERED: POTASSIUM CHLORIDE 20 MEQ TAB.PRT.SR PO ONE (01:30)
[2019-06-16] MEDS: ACETAMINOPHEN 325 MG TABLET PO PRN ×2 (01:31→06:22)
[2019-06-16] MEDS: NITROGLYCERIN 0.4 MG TAB.SUBL SL PRN ×4 (02:41→08:26)
[2019-06-16 08:28] LABS: ANION GAP 10 (5-15); CALCIUM 9.3 mg/dL (8.4-11.0); CHLORIDE 97 mmol/L (98-107); CREATININE 0.76 mg/dL (0.55-1.30); GLUCOSE 127 mg/dL (70-99); POTASSIUM 3.7 mmol/L (3.5-5.1); SODIUM SERUM 134 mmol/L (136-145); UREA NITROGEN, BLOOD 14 mg/dL (8-21)
[2019-06-16 08:29] LABS: GFR AFRICAN AMERICAN 98 mL/min (>90)
[2019-06-16] MEDS ORDERED: HYDROcodone/ACETAMIN 5-325 MG TAB (NORCO/ VICODIN) PO PRN (08:30)
[2019-06-16] MEDS ORDERED: hydrALAZINE HCL 20 MG/ML VIAL IVP PRN (08:30)
[2019-06-16 08:37] LABS: ALANINE AMINOTRANSFERASE 26 U/L (12-78); ALBUMIN 3.5 g/dL (3.4-4.8); ASPARTATE AMINOTRANSFERASE 23 U/L (10-37); TOTAL BILIRUBIN 0.3 mg/dL (0.0-1.0)
[2019-06-16] MEDS ORDERED: ASPIRIN 81 MG TAB.CHEW PO SCH (09:00)
[2019-06-16] MEDS ORDERED: CARVEDILOL 3.125 MG TABLET (COREG) PO SCH (09:00)
[2019-06-16] MEDS ORDERED: ENOXAPARIN SODIUM 40 MG/0.4 ML SYRINGE SUBCUT SCH (09:00)
[2019-06-16] MEDS ORDERED: PANTOPRAZOLE SODIUM 40 MG TAB PO SCH (09:00)
[2019-06-16 09:47] LABS: BASOPHILS % (AUTO) 0.5 % (0.0-2.0); EOSINOPHILS % (AUTO) 0.1 % (0.0-4.0); HEMATOCRIT 37.2 % (36-48); HEMOGLOBIN 12.2 g/dL (12.0-16.0); LYMPHOCYTES # (AUTO) 1.1 K/uL (1.0-5.5); LYMPHOCYTES % (AUTO) 15.8 % (20.5-51.5); MEAN CORPUSCULAR HEMOGLOBIN 31 pg (27-31); MEAN CORPUSCULAR HGB CONC 33 % (32-36); MEAN CORPUSCULAR VOLUME 93 fL (79.0-98.0); MONOCYTES # (AUTO) 0.5 K/uL (0.0-1.0); MONOCYTES % (AUTO) 6.7 % (1.7-9.3); NEUTROPHILS # (AUTO) 5.5 K/uL (1.8-7.7); NEUTROPHILS % (AUTO) 76.9 % (40.0-70.0); PLATELET COUNT (AUTO) 245 K/uL (130-430); RED BLOOD CELL COUNT(AUTO) 3.99 MIL/uL (4.2-6.2); RED CELL DISTRIBUTION WIDTH 14.9 % (9.0-15.0); WHITE BLOOD COUNT (AUTO) 7.2 K/uL (4.8-10.8)
[2019-06-16] MEDS ORDERED: MIDAZOLAM HCL 5 MG/5 ML VIAL ONE (12:37)
[2019-06-16] MEDS ORDERED: DIPHENHYDRAMINE INJ 50 MG/ML VIAL ONE (12:38)
[2019-06-16] MEDS: MIDAZOLAM HCL 5 MG/5 ML VIAL ONE ×3 (13:18→13:22)
[2019-06-16] MEDS: fentaNYL CITRATE/PF 100 MCG/2 ML AMP ONE ×3 (13:18→13:22)
[2019-06-16] MEDS ORDERED: OMEP20TA20 PO (16:41)
[2019-06-16] MEDS ORDERED: SUCRALFATE 1 GM TABLET PO SCH (17:00)
== END 2019-06-16 18:46 | disposition home or self-care (01) | DRG 392 ==
LOC: SED 19:07 → SIC 23:32
PROVIDERS: ADMIT Internal Medicine Hospice and Palliative Medicine; ATTEND Internal Medicine Hospice and Palliative Medicine
PROC: 0DD68ZX Extraction of Stomach, Via Natural or Artificial Opening Endoscopic, Diagnostic (ICD-10-PCS; 2019-06-16)
PROC: 0DB58ZX Excision of Esophagus, Via Natural or Artificial Opening Endoscopic, Diagnostic (ICD-10-PCS; principal; 2019-06-16 13:00)
DX: K21.0 Gastro-esophageal reflux disease with esophagitis (principal); J45.909 Unspecified asthma, uncomplicated; G89.29 Other chronic pain; B19.20 Unspecified viral hepatitis C without hepatic coma; F32.9 Major depressive disorder, single episode, unspecified; F12.20 Cannabis dependence, uncomplicated; I10 Essential (primary) hypertension; Z79.899 Other long term (current) drug therapy
CPT/HCPCS: 36415; 43239; 71045; 76700-TC; 80053; 80307; 81000-TC; 82550-TC; 82553-TC; 83605; 83690-TC; 83880; 84484; 85025; 85610-TC; 85730-TC; 87040-TC; 87081; 88305; 88312; 88313; 93005; 96361; 96374; 99285; J1200; J1650; J2001; J2250; J2270; J3010; J7030

== ENCOUNTER 2019-08-03 20:42 | Emergency (ER) | payer MEDICARE, MEDICAID ==
[~2019-08-03] VITALS: Ht 160 cm; Wt 54.4 kg
[~2019-08-03 20:42] MED LIST changes: +AMIT10TA6 PO; +HYDR-4274 PO; +OMEP20TA20 PO
[2019-08-03 20:49] VITALS: BP_SYST 156
--- NOTE | 2019-08-03 20:51 | NUR ---
Patient triaged and placed in waiting room. VSS and patient appears in no acute distress at this time. Accompanied by self, awaiting available bed, and MD notified of need for MSE.
--- NOTE | 2019-08-03 21:20 | NUR ---
Patient left without being seen.
== END 2019-08-03 21:20 | disposition left against medical advice (07) ==
LOC: SED 20:42
DX: M25.519 Pain in unspecified shoulder (principal); Z53.21 Procedure and treatment not carried out due to patient leaving prior to being seen by health care provider

== ENCOUNTER 2019-08-05 20:34 | Emergency (ER) | payer MEDICARE, MEDICAID ==
[~2019-08-05] VITALS: Ht 162.6 cm; Wt 71.7 kg
[2019-08-05 20:37] VITALS: BP_SYST 130
[2019-08-05 21:51] LABS: BASOPHILS % (AUTO) 0.8 % (0.0-2.0); EOSINOPHILS # (AUTO) 0.1 K/uL (0.0-0.4); HEMATOCRIT 25.9 % (36-48); HEMOGLOBIN 8.5 g/dL (12.0-16.0); LYMPHOCYTES # (AUTO) 1.1 K/uL (1.0-5.5); LYMPHOCYTES % (AUTO) 18.4 % (20.5-51.5); MEAN CORPUSCULAR HEMOGLOBIN 28 pg (27-31); MEAN CORPUSCULAR HGB CONC 33 % (32-36); MEAN CORPUSCULAR VOLUME 86 fL (79.0-98.0); MONOCYTES # (AUTO) 0.7 K/uL (0.0-1.0); MONOCYTES % (AUTO) 10.6 % (1.7-9.3); NEUTROPHILS # (AUTO) 4.3 K/uL (1.8-7.7); NEUTROPHILS % (AUTO) 69.2 % (40.0-70.0); PLATELET COUNT (AUTO) 278 K/uL (130-430); RED BLOOD CELL COUNT(AUTO) 3.01 MIL/uL (4.2-6.2); RED CELL DISTRIBUTION WIDTH 16.8 % (9.0-15.0); WHITE BLOOD COUNT (AUTO) 6.2 K/uL (4.8-10.8)
[2019-08-05 21:57] LABS: ANION GAP 9 (5-15); CHLORIDE 100 mmol/L (98-107); CREATININE 1.66 mg/dL (0.55-1.30); GFR AFRICAN AMERICAN 40 mL/min (>90); GLUCOSE 102 mg/dL (70-99); SODIUM SERUM 137 mmol/L (136-145); UREA NITROGEN, BLOOD 16 mg/dL (8-21)
[2019-08-05 22:03] LABS: ALANINE AMINOTRANSFERASE 49 U/L (12-78); ALBUMIN 3.3 g/dL (3.4-4.8); ASPARTATE AMINOTRANSFERASE 118 U/L (10-37); TOTAL BILIRUBIN 0.2 mg/dL (0.0-1.0)
[2019-08-05 22:04] LABS: ALCOHOL, BLOOD < 3 mg/dL (<10)
[2019-08-05 22:46] LABS: BILIRUBIN,URINE NEGATIVE (NEGATIVE); BLOOD, URINE NEGATIVE (NEGATIVE); CLARITY/URINE CLEAR (CLEAR); COLOR,URINE YELLOW (YELLOW); GLUCOSE,URINE NEGATIVE (NEGATIVE); KETONES,URINE NEGATIVE (NEGATIVE); LEUKOCYTE ESTERASE ,URINE 1+ (NEGATIVE); NITRITE, URINE NEGATIVE (NEGATIVE); PROTEIN URINE NEGATIVE (NEGATIVE); UROBILINOGEN,URINE 0.2 (0.2-1.0)
[2019-08-05 22:51] LABS: BACTERIA,URINE FEW /HPF (None Seen); RBC,URINE 0-3 /HPF (0-3)
[2019-08-05] MEDS ORDERED: CEPHALEXIN 500 MG CAPSULE PO ONE (23:15)
[2019-08-05 23:56] VITALS: BP_SYST 130
== END 2019-08-05 23:56 | disposition home or self-care (01) ==
LOC: SED 20:34
DX: N39.0 Urinary tract infection, site not specified (principal); J45.909 Unspecified asthma, uncomplicated; Z86.19 Personal history of other infectious and parasitic diseases; Z79.899 Other long term (current) drug therapy
CPT/HCPCS: 36415; 80053; 81000; 85025; 87086; 93005; 99284; G0482

== ENCOUNTER 2019-09-19 11:26 | Inpatient (IN) | payer MEDICARE, MEDICAID ==
[~2019-09-19] VITALS: Ht 160 cm; Wt 51.7 kg
[2019-09-19 11:41] VITALS: BP_SYST 121
[2019-09-19] MEDS ORDERED: NACL 0.9% 2,000 ML IV ONE (11:45)
[2019-09-19 12:22] LABS: BASOPHILS # (AUTO) 0.1 K/uL (0.0-0.2); EOSINOPHILS % (AUTO) 0.3 % (0.0-4.0); HEMATOCRIT 30.5 % (36-48); LYMPHOCYTES # (AUTO) 1.2 K/uL (1.0-5.5); LYMPHOCYTES % (AUTO) 21.3 % (20.5-51.5); MEAN CORPUSCULAR HEMOGLOBIN 27 pg (27-31); MEAN CORPUSCULAR HGB CONC 33 % (32-36); MEAN CORPUSCULAR VOLUME 81 fL (79.0-98.0); MONOCYTES # (AUTO) 0.4 K/uL (0.0-1.0); MONOCYTES % (AUTO) 7.8 % (1.7-9.3); NEUTROPHILS # (AUTO) 3.9 K/uL (1.8-7.7); NEUTROPHILS % (AUTO) 69.6 % (40.0-70.0); PLATELET COUNT (AUTO) 369 K/uL (130-430); RED BLOOD CELL COUNT(AUTO) 3.76 MIL/uL (4.2-6.2); RED CELL DISTRIBUTION WIDTH 19.8 % (9.0-15.0); WHITE BLOOD COUNT (AUTO) 5.5 K/uL (4.8-10.8)
[2019-09-19 12:34] LABS: ANION GAP 10 (5-15); CALCIUM 9.2 mg/dL (8.4-11.0); CHLORIDE 100 mmol/L (98-107); GLUCOSE 95 mg/dL (70-99); POTASSIUM 3.4 mmol/L (3.5-5.1); SODIUM SERUM 136 mmol/L (136-145); UREA NITROGEN, BLOOD 13 mg/dL (8-21)
[2019-09-19 12:35] LABS: GFR AFRICAN AMERICAN 71 mL/min (>90)
[2019-09-19 12:40] LABS: ALANINE AMINOTRANSFERASE 29 U/L (12-78); ALBUMIN 4.4 g/dL (3.4-4.8); ALCOHOL, BLOOD < 3 mg/dL (<10); ASPARTATE AMINOTRANSFERASE 27 U/L (10-37); TOTAL BILIRUBIN 0.6 mg/dL (0.0-1.0)
[2019-09-19 13:31] LABS: BILIRUBIN,URINE NEGATIVE (NEGATIVE); BLOOD, URINE NEGATIVE (NEGATIVE); CLARITY/URINE SL HAZY (CLEAR); COLOR,URINE YELLOW (YELLOW); GLUCOSE,URINE NEGATIVE (NEGATIVE); KETONES,URINE NEGATIVE (NEGATIVE); LEUKOCYTE ESTERASE ,URINE NEGATIVE (NEGATIVE); NITRITE, URINE NEGATIVE (NEGATIVE); PH,URINE 7.5 (5.0-8.0); PROTEIN URINE NEGATIVE (NEGATIVE); UROBILINOGEN,URINE 0.2 (0.2-1.0)
[2019-09-19 13:51] LABS: BARBITURATE, URINE NEGATIVE (NEG <=200); BENZODIAZEPINE, URINE NEGATIVE (NEG <=150); CANNABINOID, URINE POSITIVE (NEG <=50); COCAINE, URINE NEGATIVE (NEG <=150); METHAMPHETAMINES SCREEN,URINE NEGATIVE (NEG <=500); OPIATE, URINE NEGATIVE (NEG <=100); PHENCYCLIDINE SCREEN,URINE NEGATIVE (NEG <=25); UR TRICYCLIC ANTIDEPRESSANTS POSITIVE (NEG <=300); URINE AMPHETAMINE NEGATIVE (NEG <=500); URINE METHADONE NEGATIVE (NEG <=200); URINE OXYCODONE SCREEN NEGATIVE (NEG <=100); URINE PROPOXYPHENE SCREEN NEGATIVE (NEG <=300)
[2019-09-19] MEDS ORDERED: ONDANSETRON HCL 4 MG/2 ML VIAL IVP PRN (14:30)
[2019-09-19 15:05] VITALS: BP_SYST 155
[2019-09-19] MEDS ORDERED: FLU VACC TS2019(65UP)/MF59C/PF 45 MCG/0.5 ML SYRINGE I.M. PRN (15:45)
[2019-09-19 16:00] VITALS: BP_SYST 149
[2019-09-19] MEDS: 0.45% NACL 1,000 ML IV SCH (16:07)
[2019-09-19] MEDS: ACETAMINOPHEN 325 MG TABLET PO PRN ×3 (17:02→21:16)
[2019-09-19 19:00] VITALS: BP_SYST 128
[2019-09-19 20:00] VITALS: BP_SYST 128
[2019-09-19] MEDS ORDERED: HYDROcodone/ACETAMIN 5-325 MG TAB (NORCO/ VICODIN) PO PRN (22:30)
[2019-09-19] MEDS ORDERED: CITALOPRAM HYDROBROMIDE 20 MG TABLET PO SCH (22:30)
[2019-09-20] MEDS: CARISOPRODOL 350 MG TABLET PO SCH ×4 (00:13→21:01)
[2019-09-20] MEDS: AMITRIPTYLINE HCL 25 MG TABLET (ELAVIL) PO SCH ×2 (00:14→21:00)
[2019-09-20] MEDS: CITALOPRAM HYDROBROMIDE 20 MG TABLET PO SCH ×2 (00:14→09:30)
[2019-09-20 01:38] VITALS: BP_SYST 136
[2019-09-20] MEDS: 0.45% NACL 1,000 ML IV SCH ×2 (04:48→12:27)
[2019-09-20 06:46] LABS: EOSINOPHILS # (AUTO) 0.1 K/uL (0.0-0.4); EOSINOPHILS % (AUTO) 1.9 % (0.0-4.0); HEMATOCRIT 30.6 % (36-48); HEMOGLOBIN 9.9 g/dL (12.0-16.0); LYMPHOCYTES # (AUTO) 1.7 K/uL (1.0-5.5); LYMPHOCYTES % (AUTO) 38.1 % (20.5-51.5); MEAN CORPUSCULAR HEMOGLOBIN 26 pg (27-31); MEAN CORPUSCULAR HGB CONC 32 % (32-36); MEAN CORPUSCULAR VOLUME 81 fL (79.0-98.0); MONOCYTES # (AUTO) 0.4 K/uL (0.0-1.0); MONOCYTES % (AUTO) 8.4 % (1.7-9.3); NEUTROPHILS # (AUTO) 2.3 K/uL (1.8-7.7); NEUTROPHILS % (AUTO) 50.6 % (40.0-70.0); PLATELET COUNT (AUTO) 331 K/uL (130-430); RED BLOOD CELL COUNT(AUTO) 3.77 MIL/uL (4.2-6.2); RED CELL DISTRIBUTION WIDTH 19.6 % (9.0-15.0); WHITE BLOOD COUNT (AUTO) 4.6 K/uL (4.8-10.8)
[2019-09-20 06:53] LABS: ALANINE AMINOTRANSFERASE 25 U/L (12-78); ALBUMIN 3.7 g/dL (3.4-4.8); ASPARTATE AMINOTRANSFERASE 22 U/L (10-37); CALCIUM 8.5 mg/dL (8.4-11.0); CREATININE 0.82 mg/dL (0.55-1.30); GLUCOSE 89 mg/dL (70-99); TOTAL BILIRUBIN 0.5 mg/dL (0.0-1.0); UREA NITROGEN, BLOOD 9 mg/dL (8-21)
[2019-09-20 06:54] LABS: GFR AFRICAN AMERICAN 89 mL/min (>90)
[2019-09-20 06:59] LABS: ANION GAP 9 (5-15); CHLORIDE 103 mmol/L (98-107); POTASSIUM 3.3 mmol/L (3.5-5.1); SODIUM SERUM 135 mmol/L (136-145)
[2019-09-20 08:00] VITALS: BP_SYST 141
[2019-09-20] MEDS ORDERED: PANTOPRAZOLE SODIUM 40 MG TAB PO SCH (09:00)
[2019-09-20] MEDS: ASPIRIN 81 MG TAB.CHEW PO SCH (09:30)
[2019-09-20] MEDS ORDERED: CARISOPRODOL 350 MG TABLET ONE (09:41)
[2019-09-20] MEDS ORDERED: CITALOPRAM HYDROBROMIDE 20 MG TABLET ONE (09:41)
[2019-09-20 12:30] VITALS: BP_SYST 122
[2019-09-20 16:20] VITALS: BP_SYST 125
[2019-09-20 20:30] VITALS: BP_SYST 110
[2019-09-21 00:30] VITALS: BP_SYST 123
[2019-09-21 08:00] VITALS: BP_SYST 121
[2019-09-21] MEDS: CARISOPRODOL 350 MG TABLET PO SCH ×2 (08:18→14:07)
[2019-09-21] MEDS: ASPIRIN 81 MG TAB.CHEW PO SCH (08:18)
[2019-09-21] MEDS: CITALOPRAM HYDROBROMIDE 20 MG TABLET PO SCH (08:18)
[2019-09-21] MEDS: 0.45% NACL 1,000 ML IV SCH (08:20)
[2019-09-21] MEDS ORDERED: PANTOPRAZOLE SODIUM 40 MG TAB PO SCH (09:00)
[2019-09-21 11:54] VITALS: BP_SYST 133
[2019-09-21] MEDS: ACETAMINOPHEN 325 MG TABLET PO PRN (14:07)
[2019-09-21 16:04] VITALS: BP_SYST 116
[2019-09-21 16:16] VITALS: BP_SYST 116
== END 2019-09-21 16:50 | DRG 917 ==
LOC: SED 11:26 → STU 14:21 → SMU 09-21 10:31
PROVIDERS: ADMIT Internal Medicine; ATTEND Internal Medicine
DX: T40.7X1A Poisoning by cannabis (derivatives), accidental (unintentional), initial encounter (principal); G92 Toxic encephalopathy; G89.29 Other chronic pain; F10.10 Alcohol abuse, uncomplicated; D64.9 Anemia, unspecified; E87.6 Hypokalemia; F12.10 Cannabis abuse, uncomplicated; Z79.899 Other long term (current) drug therapy; Y92.89 Other specified places as the place of occurrence of the external cause
CPT/HCPCS: 36415; 70450-TC; 70551; 71045; 80053; 80307; 81003; 82140-TC; 83605; 84484; 85025; 87040-TC; 87086; 93005; 93880; 96360; 97116-GP; 97530-GP; 99285; G0378; G0482

== ENCOUNTER 2019-10-17 15:44 | Emergency (ER) | payer MEDICARE, MEDICAID ==
[~2019-10-17] VITALS: Ht 157.5 cm; Wt 53.5 kg
[2019-10-17 15:52] VITALS: BP_SYST 118
[2019-10-17] MEDS ORDERED: NACL 0.9% 1,000 ML IV ONE (16:15)
[2019-10-17] MEDS ORDERED: HALOPERIDOL LACTATE 5 MG/ML VIAL IVP ONE (16:15)
[2019-10-17 16:40] LABS: BASOPHILS # (AUTO) 0.1 K/uL (0.0-0.2); BASOPHILS % (AUTO) 1.4 % (0.0-2.0); EOSINOPHILS # (AUTO) 0.1 K/uL (0.0-0.4); EOSINOPHILS % (AUTO) 1.4 % (0.0-4.0); HEMATOCRIT 30.9 % (36-48); HEMOGLOBIN 10.1 g/dL (12.0-16.0); LYMPHOCYTES # (AUTO) 2.9 K/uL (1.0-5.5); LYMPHOCYTES % (AUTO) 43.2 % (20.5-51.5); MEAN CORPUSCULAR HEMOGLOBIN 26 pg (27-31); MEAN CORPUSCULAR HGB CONC 33 % (32-36); MEAN CORPUSCULAR VOLUME 79 fL (79.0-98.0); MONOCYTES # (AUTO) 0.2 K/uL (0.0-1.0); MONOCYTES % (AUTO) 3.6 % (1.7-9.3); NEUTROPHILS # (AUTO) 3.4 K/uL (1.8-7.7); NEUTROPHILS % (AUTO) 50.4 % (40.0-70.0); PLATELET COUNT (AUTO) 441 K/uL (130-430); RED BLOOD CELL COUNT(AUTO) 3.91 MIL/uL (4.2-6.2); RED CELL DISTRIBUTION WIDTH 20.7 % (9.0-15.0); WHITE BLOOD COUNT (AUTO) 6.8 K/uL (4.8-10.8)
[2019-10-17 16:44] LABS: ANION GAP 12 (5-15); CALCIUM 8.9 mg/dL (8.4-11.0); CHLORIDE 104 mmol/L (98-107); CREATININE 0.78 mg/dL (0.55-1.30); GLUCOSE 84 mg/dL (70-99); POTASSIUM 3.4 mmol/L (3.5-5.1); SODIUM SERUM 141 mmol/L (136-145); UREA NITROGEN, BLOOD 16 mg/dL (8-21)
[2019-10-17 16:45] LABS: GFR AFRICAN AMERICAN 94 mL/min (>90)
[2019-10-17 16:50] LABS: ALANINE AMINOTRANSFERASE 22 U/L (12-78); ALBUMIN 3.7 g/dL (3.4-4.8); ASPARTATE AMINOTRANSFERASE 22 U/L (10-37); TOTAL BILIRUBIN 0.2 mg/dL (0.0-1.0)
[2019-10-17 16:51] LABS: ACETAMINOPHEN < 1 ug/mL (1-30)
[2019-10-17 16:52] LABS: BILIRUBIN,URINE NEGATIVE (NEGATIVE); BLOOD, URINE NEGATIVE (NEGATIVE); CLARITY/URINE CLEAR (CLEAR); COLOR,URINE YELLOW (YELLOW); GLUCOSE,URINE NEGATIVE (NEGATIVE); KETONES,URINE NEGATIVE (NEGATIVE); LEUKOCYTE ESTERASE ,URINE NEGATIVE (NEGATIVE); NITRITE, URINE NEGATIVE (NEGATIVE); PH,URINE 6.5 (5.0-8.0); PROTEIN URINE NEGATIVE (NEGATIVE); UROBILINOGEN,URINE 0.2 (0.2-1.0)
[2019-10-17 17:03] LABS: BARBITURATE, URINE NEGATIVE (NEG <=200); BENZODIAZEPINE, URINE NEGATIVE (NEG <=150); METHAMPHETAMINES SCREEN,URINE NEGATIVE (NEG <=500); URINE AMPHETAMINE NEGATIVE (NEG <=500); URINE METHADONE POSITIVE (NEG <=200)
[2019-10-17 17:04] LABS: CANNABINOID, URINE POSITIVE (NEG <=50); COCAINE, URINE NEGATIVE (NEG <=150); OPIATE, URINE NEGATIVE (NEG <=100); PHENCYCLIDINE SCREEN,URINE NEGATIVE (NEG <=25); UR TRICYCLIC ANTIDEPRESSANTS POSITIVE (NEG <=300); URINE OXYCODONE SCREEN NEGATIVE (NEG <=100); URINE PROPOXYPHENE SCREEN NEGATIVE (NEG <=300)
[2019-10-17] MEDS ORDERED: LORazepam 2 MG/ML VIAL IVP ONE (17:45)
[2019-10-17] MEDS ORDERED: KETOROLAC TROMETHAMINE 30 MG VIAL IVP ONE ×2 (17:45)
[2019-10-18 06:35] VITALS: BP_SYST 118
== END 2019-10-18 06:35 | disposition home or self-care (01) ==
LOC: SED 15:44
DX: F10.129 Alcohol abuse with intoxication, unspecified (principal); F12.10 Cannabis abuse, uncomplicated; J45.909 Unspecified asthma, uncomplicated; Z88.8 Allergy status to other drugs, medicaments and biological substances; F32.9 Major depressive disorder, single episode, unspecified; Y90.8 Blood alcohol level of 240 mg/100 ml or more
CPT/HCPCS: 36415; 80053; 80307; 81003; 82550; 85025; 93005; 96374; 96375; 99284; G0480; G0481; G0482; J1630; J1885; J2060; J7030